=== PATIENT | female | born 1980 | race Caucasian/White ===

== ENCOUNTER 2018-03-05 00:54 | Outpatient (CLI) | payer MEDICAID, SELFPAY ==
[2018-03-05] MEDS: Gadoterate meglumine 20 ML VIAL IVP (15:00)
--- NOTE | 2018-03-05 15:15 | DI.MRI_ITS ---
SYMPTOM/DIAGNOSIS: LOW BACK PAIN, M54.5, LUMBAR RADICULOPATHY, M54.16, RT LEG PAIN, M79.604 LUMBAR SPINE MRI: Pre and post contrast examination was performed. Comparison is made with 07/21/17. The conus medullaris has a normal appearance and location. At L 5-S 1, there is a post laminectomy defect at L 5. There is degenerative disc desiccation. Degenerative changes of the facets are seen. There is a disc bulge eccentric to the right. Mild narrowing of the right neural foramen is present. No significant left neural foraminal stenosis is seen. No significant central spinal canal stenosis is present. There may be mild impression upon the right S 1 nerve root due to the disc bulge. At L 4-5, there does appear to be a laminectomy defect at L 4. There is a diffuse disc bulge. No focal disc herniation or central spinal canal stenosis is seen. Degenerative changes of the facets are seen. No significant neural foraminal stenosis is present. The remaining disc levels show no focal disc herniation, central spinal canal or neural foraminal stenosis. No findings to suggest an occult fracture are appreciated. Following contrast administration, no significant abnormal enhancement is appreciated. IMPRESSION: Diffuse disc bulge at L 5-S 1 eccentric to the right which does appear compress upon the right S 1 nerve root. Post surgical changes at L 4 and L 5. Degenerative disc disease at L 4-5 and L 5-S 1.
== END 2018-03-05 01:14 ==
PROVIDERS: PCP Family Medicine; Visit Provider Neurological Surgery
DX: M54.5 Low back pain (principal); M54.16 Radiculopathy, lumbar region; M79.604 Pain in right leg; M51.27 Other intervertebral disc displacement, lumbosacral region; M51.37 Other intervertebral disc degeneration, lumbosacral region
CPT/HCPCS: 72158

== ENCOUNTER 2018-03-22 10:27 | Outpatient (CLI) | payer MEDICAID, SELFPAY ==
--- NOTE | 2018-03-22 11:30 | DI.RAD_ITS ---
SYMPTOM/DIAGNOSIS: LT KNEE PAIN STANDING VIEWS OF LOWER EXTREMITIES: Standing AP views were performed from above the iliac crest through the ankles. There are degenerative changes of the left knee, greater in the lateral femoral tibial joint space. There is valgus angulation at the left knee. The hip joint spaces are well maintained. The left femoral head projects 6-7 mm. superior to the right. The ankle joint spaces are well maintained. IMPRESSION: Degenerative changes of the left knee with valgus angulation. Mild leg length discrepancy.
== END 2018-03-22 10:47 ==
PROVIDERS: PCP Family Medicine; Visit Provider Physician Assistant
DX: M25.562 Pain in left knee (principal); M17.12 Unilateral primary osteoarthritis, left knee; M21.062 Valgus deformity, not elsewhere classified, left knee; M21.70 Unequal limb length (acquired), unspecified site
CPT/HCPCS: 77073

== ENCOUNTER 2018-04-09 08:30 | Outpatient (CLI) | payer MEDICAID, SELFPAY ==
--- NOTE | 2018-04-09 08:23 | DI.RAD_ITS ---
SYMPTOM/DIAGNOSIS: SHOULDER AND KNEE PAIN, S/P FALL LEFT SHOULDER: Three views were obtained. There may be slight widening of the acromioclavicular joint but the distal end of the clavicle is not elevated, the findings are indeterminate for an acromioclavicular separation. No evidence of glenohumeral dislocation or fracture. LEFT KNEE: Four views were obtained. There are degenerative changes of the joints of the knee, most prominent involving the lateral tibiofemoral joint. There is no evidence of acute fracture.
== END 2018-04-09 08:50 ==
PROVIDERS: PCP Family Medicine; Visit Provider Physician Assistant
DX: M25.512 Pain in left shoulder (principal); M25.562 Pain in left knee; M17.12 Unilateral primary osteoarthritis, left knee
CPT/HCPCS: 73562; 73030

== ENCOUNTER 2018-05-14 11:21 | Outpatient (CLI) | payer MEDICAID, SELFPAY | END 2018-05-14 11:41 | PROVIDERS: PCP Family Medicine; Visit Provider Family Medicine | DX: R30.0 Dysuria (principal) | CPT/HCPCS: 87086 ==

== ENCOUNTER 2018-05-21 02:36 | Outpatient (CLI) | payer MEDICAID, SELFPAY ==
--- NOTE | 2018-05-21 10:23 | DI.US_ITS ---
SYMPTOMS/DIAGNOSIS: UTI, HX OF NEPHROLITHIASIS, N39.0 RENAL ULTRASOUND: The kidneys are normal in size and shape. There is no hydronephrosis. There appears to be a stone in the renal pelvis on the left, nonobstructing. No ureteral jet is identified on the left. A ureteral jet is identified on the right in the urinary bladder. The bladder is incompletely filled. No right renal mass, hydronephrosis or nephrolithiasis. CONCLUSION: Findings suggesting nephrolithiasis in left renal pelvis, nonobstructing.
== END 2018-05-21 02:56 ==
PROVIDERS: PCP Family Medicine; Visit Provider Family Medicine
DX: N39.0 Urinary tract infection, site not specified (principal); N20.0 Calculus of kidney
CPT/HCPCS: 76770

== ENCOUNTER 2018-05-25 12:49 | Outpatient (REF) | payer MEDICAID, SELFPAY ==
[2018-05-25 13:15] LABS: Bilirubin Negative (Negative); Blood Large (Negative); Clarity Cloudy; Glucose Negative (Negative); Ketones Negative (Negative); Leukocyte Esterase Moderate (Negative); Nitrite Negative (Negative); Urobilinogen 0.2 EU/dL (Up TO 0.2)
[2018-05-25 13:29] LABS: Bacteria Few HPF (Negative); Casts Negative LPF (Negative); Crystals Negative HPF (Negative); Epithelial Cells Negative HPF (Negative); Mucus Negative (Negative); Other Cells Few Renal (Negative); RBC >50 (0-2); WBC >50 HPF (0-5)
[2018-05-25 13:30] LABS: C & S Indicated? Yes
== END 2018-05-25 13:09 ==
LOC: LBN 12:49
PROVIDERS: PCP Family Medicine; Visit Provider Family Medicine
DX: R10.9 Unspecified abdominal pain (principal)
CPT/HCPCS: 81003; 81015; 87086

== ENCOUNTER 2018-05-27 13:35 | Outpatient (REF) | payer MEDICAID, SELFPAY | END 2018-05-27 13:55 | LOC: LBN 13:35 | PROVIDERS: PCP Family Medicine; Visit Provider Family Medicine | DX: N39.0 Urinary tract infection, site not specified (principal) | CPT/HCPCS: 87086 ==

== ENCOUNTER 2018-06-02 00:38 | Outpatient (CLI) | payer MEDICAID, SELFPAY ==
--- NOTE | 2018-06-02 08:51 | DI.RAD_ITS ---
SYMPTOM/DIAGNOSIS: ABD PAIN, DYSPHAGIA, R13.10,R10.9,R10.10 KUB: The bowel gas pattern is nonspecific. An ovoid calcification projected over the hilus of the left kidney would be consistent with the findings on a recent ultrasound of a non obstructing stone in the left renal pelvis. A small calcification is identified in the left hemipelvis and could conceivably represent a distal ureteral calculus. A vascular clip is also noted in the left hemipelvis. There is a right faint pelvic calcification which likely represents a calcified phlebolith. The patient is status post cholecystectomy. SUMMARY: Left nephrolithiasis is demonstrated. I could not exclude the possibility of a distal left ureteral calculus and if clinically warranted, then further evaluation with a repeat ultrasound or CT could be considered. SOFT TISSUE LATERAL NECK: The patient was unable to swallow barium at this time. No soft tissue or bony abnormality involving the neck is demonstrated. PA AND LATERAL CHEST: The heart is normal in size. The lungs are clear. The mediastinal structures and pleura appear intact. CONCLUSION: Normal chest.
== END 2018-06-02 00:58 ==
PROVIDERS: PCP Family Medicine; Visit Provider Family Medicine
DX: R10.10 Upper abdominal pain, unspecified; R13.10 Dysphagia, unspecified; N20.0 Calculus of kidney; Z90.49 Acquired absence of other specified parts of digestive tract
CPT/HCPCS: 70360; 71046; 74018

== ENCOUNTER 2018-06-29 00:38 | Outpatient (CLI) | payer MEDICAID, SELFPAY ==
--- NOTE | 2018-06-29 09:40 | DI.CT_ITS ---
SYMPTOMS/DIAGNOSIS: GROSS HEMATURIA, LT FLANK PAIN, R31.0, R10.9, H/O URINARY CALCULI CT OF THE ABDOMEN AND PELVIS: Images were performed without IV contrast followed by imaging during the venous phase as 7 minute delay images. The noncontrast images demonstrate a stone in the left renal pelvis measuring 1 cm. This stone was seen on a annual campaign manager view for barium swallow. It was also seen on renal ultrasound of [id number]. No additional renal calculi are seen. There is no evidence of ureteral or bladder calculi. The post IV images show symmetric nephrograms. There is mild dilatation of the intrarenal collecting system on the left. The renal excretion is symmetric. No renal mass or ureteral or bladder filling defects are seen.
[2018-06-29] MEDS: Omnipaque 350 MG/ML 100 ML BTL IJ (11:26)
== END 2018-06-29 00:58 ==
PROVIDERS: PCP Family Medicine; Visit Provider Nurse Practitioner Gerontology
DX: R10.32 Left lower quadrant pain (principal); R31.0 Gross hematuria; Z87.442 Personal history of urinary calculi
CPT/HCPCS: 74178; J3490

== ENCOUNTER 2018-07-23 07:51 | Outpatient (CLI) | payer MEDICAID, SELFPAY | END 2018-07-23 08:11 | PROVIDERS: PCP Family Medicine; Visit Provider Urology | DX: Z01.818 Encounter for other preprocedural examination (principal) ==

== ENCOUNTER 2018-07-29 10:02 | Day surgery (SDC) | payer MEDICAID, SELFPAY ==
[2018-07-23 08:13] VITALS: BP 139/85; PULSE 92; RESP 18; TEMP 36.8; O2SAT 99
--- NOTE | 2018-07-29 09:53 | DI.RAD_ITS ---
SYMPTOM/DIAGNOSIS: LT RENAL PELVIS STONE OR RETROGRADE: Fluoroscopy Time: 54.5 seconds A left retrograde examination was carried out in the OR by Dr. Ibarra with placement of a double J catheter. Please see the operative report for further information.
[2018-07-29 10:25] VITALS: BP 122/74; PULSE 84; RESP 18; TEMP 36.6; O2SAT 100
[2018-07-29] MEDS: Lactated Ringers 1,000 ML 80 ML IV (11:24)
[2018-07-29] MEDS: ceFAZolin 2 GM/50 ML BAG IVPB (11:55)
[2018-07-29] MEDS: Omnipaque 300 MG/ML 50 ML BTL (12:09)
[2018-07-29] MEDS: Lidocaine 2% Jelly 6 ML SYR (12:14)
[2018-07-29 13:07] VITALS: BP 151/74; PULSE 85; RESP 21; TEMP 36.5; O2SAT 100
--- NOTE | 2018-07-29 13:11 | W.PM.DSUDISC ---
Discharge Plan Disposition Patient Disposition: HOME Condition: Stable Discharge Details Attending Provider: Roberto Ibarra Primary Care Provider: Emely Cheek Home Meds and New Rx's Prescriptions: No Action gabapentin 100 mg capsule See Patient Comments PO .COMPLEX RF: 0 lamotrigine 100 mg tablet See Patient Comments PO BID RF: 0 Compete 1 EACH tablet 1 ea PO DAILY RF: 0 lidocaine [Lidoderm] 1 EACH adhesive patch,medicated 1 ea Topical DAILY Qty: 1 RF: 4 ibuprofen 600 MG tablet 600 mg PO Q6H PRN Qty: 60 RF: 2 promethazine 12.5 mg tablet 12.5 mg PO TID PRN (Reason: migraine headache) Qty: 25 RF: 2 venlafaxine 150 mg capsule,extended release 24hr 150 mg PO DAILY Qty: 90 RF: 4 trazodone 100 mg tablet 100 mg PO HS Qty: 90 RF: 4 venlafaxine 75 mg capsule,extended release 24hr 75 mg PO DAILY Qty: 90 RF: 4 naproxen sodium [Aleve] 220 mg tablet 440 mg PO DAILY Qty: 60 RF: 4 methocarbamol 750 mg tablet 1,500 mg PO TID PRN (Reason: muscle spasm) Qty: 30 RF: 0 tramadol 50 mg tablet 50 mg PO BID PRN (Reason: pain) Qty: 25 RF: 0 omeprazole 40 mg capsule,delayed release(DR/EC) 40 mg PO DAILY Qty: 90 RF: 4 Discharge Instructions Additional Instructions: No need to strain urine Drink plenty of fluid Do not be surprised if you see blood in the urine while the stent is in place My office will contact you to arrange cystoscopy, stent removal and ureteroscopy to make sure all stones have been removed Activity:: Activity as Tolerated Shower/Bathe:: 24 hours Diet:: As Tolerated Discharge Orders Discharge Orders: Discharge Order (Routine); Ordered 07/29/18 Ordered By: Roberto Ibarra DS: Diagnosis Discharge Diagnosis (1) Kidney stones: Status: Chronic
[2018-07-29 13:12] VITALS: BP 156/75; PULSE 83; RESP 26; TEMP 36.5; O2SAT 100
[2018-07-29 13:17] VITALS: BP 144/75; PULSE 90; RESP 23; TEMP 36.5; O2SAT 99
[2018-07-29 13:30] VITALS: BP 132/70; PULSE 84; RESP 23; TEMP 36.5; O2SAT 99
[2018-07-29] MEDS: Tamsulosin 0.4 MG CAPCR PO (14:04)
[2018-07-29] MEDS: Phenazopyridine 200 MG TAB PO (14:04)
[2018-07-29 14:20] VITALS: BP 134/79; PULSE 76; RESP 18; TEMP 36.9; O2SAT 100
[2018-07-29] MEDS: traMADol 50 MG TAB PO (14:20)
--- NOTE | 2018-07-30 09:50 | ROE_ITS ---
DATE OF PROCEDURE: July 29, 2018 PREOPERATIVE DIAGNOSIS: Left kidney stone. POSTOPERATIVE DIAGNOSIS: Same. PROCEDURE: Cystoscopy; left retrograde pyelogram; left flexible ureteroscopy; holmium laser lithotri psy of stone; stone extraction; insert left ureteral stent. SURGEON: Roberto Ibarra M.D. ANESTHESIA: General. COMPLICATIONS: None. ESTIMATED BLOOD LOSS: Minimal. HISTORY: This is a 37-year-old woman who has a history of left-side flank pain and hematuria. She w as identified as having a 1 cm stone in the left renal pelvis. She presents for stone manipulation. OPERATIVE REPORT: The patient was brought to the Operating Room on 07/29/18. After successful induct ion of general anesthesia, she was placed in the dorsal lithotomy position. Her genitalia was preppe d and draped. A 22 Bulgarian rigid cystoscope was passed through the urethra into the bladder. The urethra and bladde r were inspected with the 30-degree lens. Both ureteral orifices were identified. No blood was seen coming from either side. The left uretera l orifice was cannulated with a 6 Bulgarian access catheter. A retrograde film was obtained by injectin g Omnipaque through the access catheter under fluoroscopic guidance. The filling defect could be seen in the renal pelvis. A Glidewire was then advanced up through the access catheter into the upper pole calyx. A dual-lumen catheter was then advanced over the wire. A second wire was positioned. We chose one of the wires as a working wire and the other wire as a safety wire. We passed a uretera l access sheath over the working wire and advanced the sheath until the tip of it was seen in the upp er ureter fluoroscopically. I then passed a flexible ureteroscope through the access sheath and maneuvered the scope into the jody al pelvis. There was a clot in the renal pelvis and I could see indications of stone wedged within the clot. I irrigated most of the clot off and was able to then treat the stone with our holmium laser. We use d a 272 micron fiber and a power setting of .8 with a rate of 8. The stone fragmented fairly nicely. It was somewhat difficult to see all of the fragments due to the clot within the renal pelvis. We we re able to grasp the main fragment using a Xero Tip stone basket. We then removed the fragment and s ent it to Pathology for chemical analysis. Because I was not sure if all stone fragments had been successfully removed, we elected to place a ur eteral stent. We chose a 4.8 Bulgarian variable-length stent and advanced it over the safety wire. The proximal end of the stent was seen curled in the renal pelvis and the distal end was seen curled in the bladder fluoroscopically. We will make plans for a staged procedure with a planned return to the Operating Room for a cystoscop y, stent removal, retrograde pyelogram and repeat ureteroscopy to ensure all stone fragments had been cleared. cc: Emely Cheek M.D.
[2018-08-03 20:10] LABS: Source: Left Kidney
== END 2018-07-29 14:55 | disposition home or self-care (01) ==
PROVIDERS: PCP Family Medicine; Visit Provider Urology
PROC: (CPT 52356; principal; 2018-07-29 11:30)
DX: N20.0 Calculus of kidney (principal)
CPT/HCPCS: 52356; 74420; 82365; J0131; J0690; J1100; J1885; J2405; J3010; Q9967

== ENCOUNTER 2018-08-12 10:58 | Day surgery (SDC) | payer MEDICAID, SELFPAY ==
[2018-08-12 11:12] VITALS: BP 122/78; PULSE 85; RESP 16; TEMP 37.3; O2SAT 98
[2018-08-12] MEDS: Lactated Ringers 1,000 ML 80 ML IV ×2 (11:42→13:41)
--- NOTE | 2018-08-12 12:26 | HPE_ITS ---
Assessment and Plan (1) Kidney stones: Current visit: Yes Status: Chronic We will remove her indwelling stent and perform ureteroscopy to ensure all of the stone fragments have been removed. History of Present Illness Chief Complaint: Left renal stone Narrative: This is a 38-year-old woman who was identified as having a large stone in her left kidney. She had undergone flexible ureteroscopy with holmium laser of the stone. We removed the majority of the stone fragments, but it was unclear to me whether any of his fragments remained at the end of the procedure. We placed a ureteral stent. She comes back in for a planned ureteroscopy. With the stone fragments that were removed and the initial surgery are showing 100% calcium oxalate monohydrate. She has had some bleeding and has passed the clots in the past week. She does not feel like she empties her bladder completely. She wonders if she has a UTI. Review of Systems Review of Systems No fevers or chills No vision change or dysphasia No diabetes or thyroid Hx asthma. No current sputum production or hemoptysis. No chest pain or palpitations No nausea, vomiting, hepatitis, ulcers, jaundice, diarrhea or constipation No seizures, strokes or peripheral neuropathy Hx thrombocytopenia No gout. Chronic back pain and arthralgia. [facility] Medical History Anemia Asthma Back pain with sciatica Chronic low back pain Chronic pain syndrome Depression Depressive disorder Dizziness Essential thrombocytopenia Fibromyalgia Generalized-onset seizures History of galactorrhea Internal derangement of left knee Intractable classical migraine Obesity Pes anserinus bursitis of left knee Primary osteoarthritis of left knee Quadriceps tendonitis Recurrent UTI Surgical History History of cystoscopy (Acute) Arthroplasty of knee (01/23/15) Cholecystectomy (~05/2008) L5 S1 surgery (~2007) Ligation of fallopian tube (~2012) Tonsillectomy and adenoidectomy (~1992) Social History Smoking/Tobacco Use Status: Never Second Hand Exposure: Yes Alcohol Intake: current Alcohol Intake frequency: holidays/special occasions only Alcohol type: beer Drug use: Never Substance use type: does not use Household members: other Details: 4 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 Pets and animals: Yes Pets and animals: cat(s), dog(s), farm animals and other What type of physical activity do you participate in: walking Duration: < 15 minutes/day Frequency: 1-2 times per week Fide/Christianity: No preference Special fide needs: No Seatbelt use: never Working smoke detector in home: Yes Carbon monox detector in home: Yes Firearms in home: Yes Firearms unloaded and locked: Yes Do you feel safe at home: Yes Do you feel safe in your relationship?: Yes Meds Home Medications Medication Instructions Recorded Confirmed Type lidocaine [Lidoderm] 1 ea TOPICAL DAILY #1 box 12/29/16 08/12/18 Rx ibuprofen 600 mg PO Q6H PRN #60 tab-cap 02/17/17 08/10/18 Rx naproxen sodium 220 mg tablet 440 mg PO DAILY #60 tab-cap 03/22/18 08/12/18 Rx promethazine 12.5 mg tablet 12.5 mg PO TID PRN #25 tab-cap 03/22/18 08/10/18 Rx trazodone 100 mg tablet 100 mg PO HS #90 tab 03/22/18 08/12/18 Rx venlafaxine ER 150 mg 150 mg PO DAILY #90 cap 03/22/18 08/12/18 Rx capsule,extended release 24 hr venlafaxine ER 75 mg 75 mg PO DAILY #90 cap 03/22/18 08/12/18 Rx capsule,extended release 24 hr methocarbamol 750 mg tablet 1,500 mg PO TID PRN #30 tab-cap 03/26/18 08/12/18 Rx tramadol 50 mg tablet 50 mg PO BID PRN #25 tab-cap 04/19/18 08/12/18 Rx gabapentin 100 mg capsule See Rx Instructions PO .COMPLEX 05/27/18 08/12/18 History cap lamotrigine 100 mg tablet See Rx Instructions PO BID tab 05/27/18 08/12/18 History omeprazole 40 mg capsule,delayed 40 mg PO DAILY #90 cap 06/18/18 08/12/18 Rx release fluticasone propionate 50 1 spray GT DAILY #16 gm 08/04/18 08/10/18 Rx mcg/actuation nasal spray,suspension levomefolate calcium 15 mg tablet 15 mg PO DAILY #30 tab 08/04/18 08/12/18 Rx fexofenadine-pseudoephedrine 1 tab PO DAILY 08/10/18 08/12/18 History [Mahogany-D 24 Hour] Allergies Allergy/AdvReac Type Severity Reaction Status Date / Time bee venom protein (honey bee) Allergy Severe Swelling/Ed Unverified 08/12/18 11:21 tram meloxicam Allergy Severe Anaphylaxis Unverified 08/12/18 11:21 oxycodone HCl [From Percocet] Allergy Severe vomiting, Unverified 08/12/18 11:21 hives adhesive AdvReac Intermediate skin Unverified 08/12/18 11:21 irritation prednisone AdvReac Intermediate edema Unverified 08/12/18 11:21 bupropion HCl AdvReac Unverified 08/12/18 11:21 [From Wellbutrin] Exam Narrative Exam Narrative: She is in no current distress. She is cooperative. She does not appear septic or toxic. Her vital signs are documented elsewhere. Her neck is thick but supple Her lungs are clear with decreased breath sounds bilaterally Cardiac exam regular rate and rhythm Her abdomen is obese but soft with no masses She is awake and alert. Results Last Vital Signs Temp 37.3 C 08/12/18 11:12 Pulse 85 08/12/18 11:12 Resp 16 08/12/18 11:12 BP 122/78 08/12/18 11:12 Pulse Ox 98 08/12/18 11:12
--- NOTE | 2018-08-12 13:29 | DI.RAD_ITS ---
SYMPTOMS/DIAGNOSIS: CALCULUS OF KIDNEY, N20.0 RETROGRADE IN THE OR: Fluoroscopy Time: 4.7 seconds/2.64 mGy C-arm fluoroscopy was utilized by Dr. Ibarra during reported retrograde study. Please see Dr. Ibarra's procedure note.
[2018-08-12] MEDS: Lidocaine 2% Jelly 11 ML SYR (14:14)
--- NOTE | 2018-08-12 14:35 | W.PM.DSUDISC ---
Discharge Plan Discharge Details Attending Provider: Roberto Ibarra Primary Care Provider: Emely Cheek Home Meds and New Rx's Prescriptions: No Action fluticasone propionate [Flonase Allergy Relief] 50 mcg/actuation spray,suspension 1 spray GT DAILY Qty: 16 RF: 3 levomefolate calcium [L-Methylfolate] 15 mg tablet 15 mg PO DAILY Qty: 30 RF: 6 gabapentin 100 mg capsule See Patient Comments PO .COMPLEX RF: 0 lamotrigine 100 mg tablet See Patient Comments PO BID RF: 0 lidocaine [Lidoderm] 1 EACH adhesive patch,medicated 1 ea Topical DAILY Qty: 1 RF: 4 ibuprofen 600 MG tablet 600 mg PO Q6H PRN Qty: 60 RF: 2 promethazine 12.5 mg tablet 12.5 mg PO TID PRN (Reason: migraine headache) Qty: 25 RF: 2 venlafaxine 150 mg capsule,extended release 24hr 150 mg PO DAILY Qty: 90 RF: 4 trazodone 100 mg tablet 100 mg PO HS Qty: 90 RF: 4 venlafaxine 75 mg capsule,extended release 24hr 75 mg PO DAILY Qty: 90 RF: 4 naproxen sodium [Aleve] 220 mg tablet 440 mg PO DAILY Qty: 60 RF: 4 methocarbamol 750 mg tablet 1,500 mg PO TID PRN (Reason: muscle spasm) Qty: 30 RF: 0 tramadol 50 mg tablet 50 mg PO BID PRN (Reason: pain) Qty: 25 RF: 0 omeprazole 40 mg capsule,delayed release(DR/EC) 40 mg PO DAILY Qty: 90 RF: 4 Mahogany-D 24 Hour 180-240 mg Tablet Extended Release 24 Hr 1 tab PO DAILY RF: 0 Discharge Instructions Stand Alone Forms: [facility] ([facility]) DS: Diagnosis Discharge Diagnosis (1) Kidney stones: Status: Chronic
[2018-08-12 14:45] VITALS: BP 108/41; PULSE 92; RESP 19; TEMP 36.6; O2SAT 96
[2018-08-12 14:50] VITALS: PULSE 81; RESP 15; TEMP 36.7; O2SAT 97
[2018-08-12 14:55] VITALS: TEMP 36.7
[2018-08-12 14:57] LABS: Bilirubin Negative (Negative); Blood Large (Negative); Clarity Cloudy (Clear); Glucose Negative (Negative); Ketones Negative (Negative); Leukocyte Esterase Moderate (Negative); Nitrite Negative (Negative); Specific Gravity 1.025 (1.005-1.025); Urobilinogen 0.2 EU/dL (Up TO 0.2)
[2018-08-12 15:07] LABS: Bacteria Few HPF (Negative); C & S Indicated? No; Epithelial Cells Moderate HPF (Negative); RBC >50 (0-2); WBC >50 HPF (0-5)
[2018-08-12 15:10] VITALS: BP 112/57; PULSE 68; RESP 12; TEMP 36.3; O2SAT 100
[2018-08-12 15:50] VITALS: BP 130/90; PULSE 75; RESP 16; TEMP 35.9; O2SAT 100
[2018-08-12] MEDS: HYDROcodone 5/Acetaminophen 325 TAB PO (15:53)
[2018-08-12] MEDS: Phenazopyridine 200 MG TAB PO (15:53)
[2018-08-12] MEDS: Tamsulosin 0.4 MG CAPCR PO (16:04)
--- NOTE | 2018-08-13 07:14 | ROE_ITS ---
REPORT OF OPERATIVE PROCEDURE DATE OF PROCEDURE August 12, 2018 PREOPERATIVE DIAGNOSIS Left kidney stones. POSTOPERATIVE DIAGNOSIS Left kidney stones. PROCEDURES Cystoscopy, remove left ureteral stent, left flexible ureteroscopy, extraction of stone fragment. SURGEON Roberto Ibarra M.D. ANESTHESIA General. COMPLICATIONS None. ESTIMATED BLOOD LOSS Minimal. HISTORY This is a 38-year-old woman who has a history of a 1-cm left renal pelvic stone. She underwent ureter oscopy with Holmium laser of the stone. We were not sure if all stone fragments had cleared. We place d a stent at the end of her initial procedure. She returns now for a staged ureteroscopy to remove any remaining stone fragments. DESCRIPTION OF PROCEDURE The patient was brought to the Operating Room on 08/12/2018. After successful induction of general ane sthesia, she was placed in the dorsal lithotomy position. Her genitalia was prepped and draped. A #22 -Telugu rigid cystoscope was passed through the urethra into the bladder. The bladder was inspected with a 30-degree lens. The left ureteral stent was seen protruding from the orifice. The stent was grasped in alligator forceps and removed to the level of the urethral meatus. A Glidewire was passed through the stent and maneuvered up the remainder of the left ureter. The sten t was then removed leaving the wire in place. A dual lumen catheter was positioned and a second wire was placed. We choose one of the wires as a wo rking wire and the other as a safety wire. A ureteral access sheath was advanced over the working wire. The safety wire was left in place. The flexible ureteroscope was then introduced through the access sheath and maneuvered up the left ur eter to the collecting system. We inspected each of the calyces and found one stone fragment in one of the mid pole calyces. This fr agment was grasped in a Zero tip stone basket and removed in its entirety. Since her previous stone h ad already undergone chemical analysis we did not send this fragment to the lab. With no additional stone fragments identified, we removed the scope and ureteral access sheath. We al so removed the safety wire. CC: Emely Cheek M.D.
== END 2018-08-12 16:25 | disposition home or self-care (01) ==
PROVIDERS: PCP Family Medicine; Visit Provider Urology
PROC: (CPT 52352; principal; 2018-08-12 13:00)
DX: N20.0 Calculus of kidney (principal)
CPT/HCPCS: 52352; 81025; NC; 74420; 81003; 81015; J1100; J1885; J2405

== ENCOUNTER 2018-09-20 00:45 | Outpatient (CLI) | payer MEDICAID, SELFPAY ==
--- NOTE | 2018-09-20 09:57 | DI.US_ITS ---
SYMPTOM/DIAGNOSIS: F/U RETROGRADE FOR KIDNEY STONES, ? HYDRONEPHROSIS RENAL ULTRASOUND: The left kidney measures 11.2 cm. in length. The right kidney measures 10.5 cm. in length. The parenchymal thickness and echogenicity appear normal. A shadowing stone is seen at the lower pole of the left kidney measuring up to 12 mm. in size. No hydronephrosis or right sided calculi are seen. The prevoid bladder volume measured 114 cc's. There is a 4 cc postvoid residual. Both ureteral jets were visualized. IMPRESSION: 12 mm. non obstructing stone at the lower pole of the left kidney.
== END 2018-09-20 01:05 ==
PROVIDERS: PCP Family Medicine; Visit Provider Urology
DX: N20.0 Calculus of kidney (principal)
CPT/HCPCS: 76770

== ENCOUNTER 2018-10-21 09:54 | Outpatient (CLI) | payer MEDICAID, SELFPAY ==
--- NOTE | 2018-10-21 08:49 | DI.RAD_ITS ---
SYMPTOM/DIAGNOSIS: LEFT KNEE PAIN, KNOWN DJD LEFT KNEE: 10/21 Two views were obtained. There is narrowing of the lateral tibial femoral cartilaginous joint space with mild subchondral sclerosis of the medial tibial plateau. Mild flattening of the femoral condyles noted bilaterally. Mild marginal osteophyte formation noted at the lateral tibiofemoral joint and to a lesser degree the patellofemoral joint. CONCLUSION: DJD predominantly involving lateral tibial femoral joint
== END 2018-10-21 10:14 ==
PROVIDERS: PCP Family Medicine; Visit Provider Physician Assistant
DX: M25.562 Pain in left knee (principal); M17.12 Unilateral primary osteoarthritis, left knee
CPT/HCPCS: 73560

== ENCOUNTER 2018-10-29 01:17 | Outpatient (CLI) | payer MEDICAID, SELFPAY ==
--- NOTE | 2018-10-29 11:50 | DI.MRI_ITS ---
SYMPTOMS/DIAGNOSIS: CHRONIC LEFT KNEE DJD, NEW INJURY/FALL IN AUGUST WITH INCREASING ANTERIOR KNEE PAIN, M17.12, S/P PARTIAL MENISCECTOMY MRI OF THE LEFT KNEE: Comparison is made with plain films dated October, and MRI dated January,. Proton density and fat-suppressed T2 sagittal, T1 and fat- suppressed T2 coronal and fat-suppressed T2 axial sequences were performed. The exam is limited by patient body habitus. The knee coil was unable to be used. There is decreased image resolution. Some images also show technical artifact. There is a moderate-sized joint effusion. There is some fluid seen in the anterior soft tissues anterior to the patellar tendon. The quadriceps and patellar tendons appear intact. The marrow signal is normal. There is no evidence of a fracture. The cruciate and collateral ligaments appear grossly intact. The patient has had a previous surgery of the lateral meniscus. The anterior horn is quite diminutive. The menisci are not well evaluated due to limitations of the exam. There is spurring from the lateral femoral condyle and lateral tibial plateau. IMPRESSION: Extremely limited exam. Postsurgical changes of the lateral meniscus. Degenerative changes of the lateral femorotibial joint. Joint effusion.
== END 2018-10-29 01:37 ==
PROVIDERS: PCP Family Medicine; Visit Provider Student in an Organized Health Care Education/Training Program
DX: M25.562 Pain in left knee (principal); M17.12 Unilateral primary osteoarthritis, left knee; M25.462 Effusion, left knee
CPT/HCPCS: 73721

== ENCOUNTER 2019-02-01 08:28 | Outpatient (CLI) | payer MEDICAID, SELFPAY ==
[2019-02-01 08:52] LABS: Platelet Count 327 x1000/uL (130-400)
[2019-02-01 09:56] VITALS: BP 122/70; PULSE 65; RESP 20; TEMP 37.1; O2SAT 100
--- NOTE | 2019-02-01 10:16 | PDOC.PAIN_ITS ---
Pain Clinic Procedure Note Procedure Note Procedure Note: LEFT GENICULAR NERVE BLOCK Date of Service: February 01, 2019 Patient: YENNY ALICIA Provider: Eliud Mejia MD Pre-operative diagnosis: left knee osteoarthritis Post-operative diagnosis: same as above COMMENTS: Pre-procedure VAS to the left knee is 6/10. patient was evaluated by Es Jaramillo APRN and referred for diagnostic left genicular nerve block for chronic knee pain. patient is obese and cannot tolerate PT effectively due to worsening knee pain. she is in the process of considering gastric bypass as weight reduction option. YENNY ALICIA has been referred to the [facility] for left genicular nerve block. YENNY was interviewed and the medical record reviewed. There were no medical, pharmacologic, radiographic or other structural contraindications to attempting fluoroscopically guided left genicular nerve block. Risks and potential side effects as well as potential benefit of the procedure were reviewed with YENNY , and she voiced concerns were addressed. After I believed that the patient was completely informed, the printed consent form was signed. Standard time-out procedure was performed. YENNY was placed in the supine position on the fluoroscopy table and automated blood pressure cuff and pulse oximeter applied. The skin entry points for approaching left superolateral genicular nerve, the superomedial genicular nerve and the inferomedial genicular was identified under the most advantageous fluoroscopic view and marked. Following thorough Chlorhexadine preparation of the skin and draping, 1% lidocaine infiltration of the skin entry point and subcutaneous tissues was accomplished using a 1.5 25G needle. Next, the 3.5 25G spinal needle was advanced to os at the location of the specific nerve root using fluoroscopic guidance. Next, 1 cc of 1% 0.5% Bupivocaine was injected at each site. The needles were removed without difficulty. YENNY's vital signs were stable throughout the procedure and were as recorded in the docflowsheet by the nursing staff. If given, dosages of intravenous drugs for anxiolysis and analgesia were documented in MAR. Follow up plans and appointments were discussed with the YENNY . Post procedure instruction was given as documented in nursing documentation and having met discharge criteria, YENNY was discharged from the [facility]. COMMENTS: No complications. Post-procedure VAS to the left knee is 3/10. The patient will keep track of her left knee pain over the next four hours. If YENNY has sufficient pain relief, YENNY will be a candidate for radiofrequency ablation at the same nerves. Islas WJ1, Clmeentina SJ, Greg JG, Nidia JG, Donaldson MOLINA, Park PH, Potter JW. Radiofrequency treatment relieves chronic knee osteoarthritis pain: a double-blind randomized controlled trial. Pain. 2010;152(3):481-7. doi: 10.1016/j.pain.2010.09.029. Laura S1, Kristopher ON2, Santy Y3, ?zl?bj P2, Dave U1, Abram ?m?rl? I. Which one is more effective for the clinical treatment of chronic pain in knee osteoarthritis: radiofrequency neurotomy of the genicular nerves or intra- articular injection? Int J Rheum Dis. 2016 Sep 27. I personally performed this entire procedure. Eliud Mejia MD Attending Physician
--- NOTE | 2019-02-01 10:45 | DI.RAD_ITS ---
EXAM: XR PAIN CLINIC FLUORO JOINT IN CLINICAL HISTORY: Dx: Osteoarthritis of left knee,LT GENICULAR BLOCK TECHNIQUE: Fluoroscopy was provided for the referring physician for guidance with performing injecti on procedure. COMPARISON: No exams were available for comparison FINDINGS: Please see procedure note for details. FLUORO TIME: 68.10 seconds
[2019-02-01 10:49] VITALS: BP 148/95; PULSE 83; O2SAT 100
[2019-02-01] MEDS: Bupivacaine 0.5% Pres-Free 10 ML VIAL IJ (10:57)
[2019-02-01] MEDS: Omnipaque 240 MG/ML 50 ML BTL IJ (10:58)
== END 2019-02-01 08:48 ==
PROVIDERS: PCP Family Medicine; Visit Provider Internal Medicine
DX: M17.12 Unilateral primary osteoarthritis, left knee (principal)
CPT/HCPCS: 64640; 77002; 85049; Q9967

== ENCOUNTER 2019-02-23 01:27 | Outpatient (CLI) | payer MEDICAID, SELFPAY ==
--- NOTE | 2019-02-23 15:55 | DI.US_ITS ---
EXAM: US RENAL CLINICAL HISTORY: flank pain with hx of kidney stones R10.9 ABDOMINAL PAIN TECHNIQUE: Ultrasound performed using standard protocol. COMPARISON: US renal from 09/20/2018 FINDINGS: Renal ultrasound was performed according to the usual protocol. The kidneys are not ideally visualiz ed but appear normal in size and shape. No gross hydronephrosis. No nephrolithiasis seen. Urinary bladder is unremarkable in appearance with pre and postvoid urinary bladder volume measurements 207 c c and 3 cc respectively. Ureteral jets were seen bilaterally. IMPRESSION: Technically limited study. No abnormality seen.
== END 2019-02-23 01:47 ==
PROVIDERS: PCP Family Medicine; Visit Provider Nurse Practitioner Gerontology
DX: R10.9 Unspecified abdominal pain (principal); Z87.442 Personal history of urinary calculi
CPT/HCPCS: 76770

== ENCOUNTER 2019-03-10 10:53 | Outpatient (CLI) | payer MEDICAID, SELFPAY ==
--- NOTE | 2019-03-10 10:48 | DI.RAD_ITS ---
EXAM: XR KNEE RT 3V AP,LAT,ILIANA CLINICAL HISTORY: RIGHT KNEE PAIN. TECHNIQUE: 2D digital imaging was performed. COMPARISON: XR knee LT 3V AP,lat,iliana from 10/21/2018 FINDINGS: BONES: No acute fracture is present. No bony destructive lesion is seen. JOINTS: The knee is normally aligned. No joint effusion is seen. SOFT TISSUE: Normal. IMPRESSION: Unremarkable radiographs of the right knee.
== END 2019-03-10 11:13 ==
PROVIDERS: PCP Family Medicine; Visit Provider Student in an Organized Health Care Education/Training Program
DX: M25.561 Pain in right knee (principal)
CPT/HCPCS: 73562

== ENCOUNTER 2019-06-14 11:33 | Outpatient (REF) | payer MEDICAID, SELFPAY | END 2019-06-14 11:53 | LOC: LBN 11:33 | PROVIDERS: PCP Family Medicine; Visit Provider Family Medicine | DX: N39.0 Urinary tract infection, site not specified (principal) | CPT/HCPCS: 87077; 87086; 87186 ==

== ENCOUNTER 2019-09-29 00:39 | Outpatient (CLI) | payer MEDICAID, SELFPAY ==
--- NOTE | 2019-09-29 07:15 | DI.US_ITS ---
EXAM: US RENAL CLINICAL HISTORY: monitor known left kidney stone,. TECHNIQUE: Gonzalez scale, color and spectral Doppler were used. COMPARISON: US US RENAL from 02/23/2019 FINDINGS: Renal size in cm: Right: 10.6. Left: 11.5. Echogenicity: Normal. Hydronephrosis: No. Cyst or mass: No. Nephrolithiasis: 7.4 mm echogenic shadowing focus in the lower pole of the left kidney consistent wit h a nonobstructing stone. Other findings: None. Bladder:Not adequately filled for examination. Renal color flow: Symmetric and within normal limits. IMPRESSION: 1. Left nephrolithiasis. No hydronephrosis. 2. Urinary bladder inadequately filled for examination. DATA REPOSITORY:
== END 2019-09-29 00:59 ==
PROVIDERS: PCP Family Medicine; Visit Provider Urology
DX: N20.0 Calculus of kidney (principal)
CPT/HCPCS: 76770

== ENCOUNTER 2019-10-14 03:51 | Outpatient (CLI) | payer MEDICAID, SELFPAY ==
[2019-10-14 09:10] LABS: HCT 38.3 % (36.0-46.0); HGB 12.5 g/dL (11.2-15.7); MCH 28.5 pg (27.0-33.0); MCHC 32.6 % (32.0-36.0); MCV 87.4 fL (80-95); MPV 10.6 fL (8.0-11.0); Platelet Count 305 10^3/uL (130-400); RBC 4.38 10^6/uL (3.93-5.22); RDW 12.3 % (11.7-14.6); RDW-SD 39.4 fL; WBC 7.54 10^3/uL (4.4-10.8)
[2019-10-14 10:15] LABS: Iron 60 ug/dL (50-170); Total Iron Binding Capacity 283 ug/dL (250-450); Transferrin Sat 21 % (15-50)
[2019-10-14 10:28] LABS: ALT 32 U/L (14-59); AST 14 U/L (15-37); Albumin 3.9 g/dL (3.4-5.0); Alkaline Phosphatase 129 U/L (46-116); Anion Gap 3.8 mmol/L (3-11); BUN 23 mg/dL (7-18); Bilirubin, Total 0.5 mg/dL (0.2-1.0); CO2 28.2 mmol/L (21.0-32.0); CREATININE 0.81 mg/dL (0.55-1.02); Calcium 8.9 mg/dL (8.5-10.1); Calculated LDL 149 mg/dL (<100); Chloride 106 mmol/L (98-107); Cholesterol 222 mg/dL (<200); Ferritin 56 ng/mL (8-252); Glucose 96 mg/dL (74-106); HDL Cholesterol 54 mg/dL (40-60); Potassium 4.2 mmol/L (3.5-5.1); Sodium 138 mmol/L (136-145); Total Protein 7.1 g/dL (6.4-8.2); Triglyceride 97 mg/dL (<150)
[2019-10-17 10:17] LABS: IgA 223 mg/dL (85-499)
[2019-10-17 16:07] LABS: TSH 2.48 uIU/mL (0.36-3.74)
[2019-10-17 18:12] LABS: Tissue Transglutaminase Ab IgA <1.2 U/mL
== END 2019-10-14 04:11 ==
PROVIDERS: PCP Family Medicine; Visit Provider Internal Medicine Gastroenterology
DX: R53.83 Other fatigue (principal); E83.42 Hypomagnesemia; R19.7 Diarrhea, unspecified; Z13.220 Encounter for screening for lipoid disorders
CPT/HCPCS: 36415; 80053; 80061; 82784; 85027; 82728; 83516; 83540; 83550; 83735; 84443

== ENCOUNTER 2020-10-16 01:18 | Outpatient (CLI) | payer OTHER, MEDICAID, SELFPAY ==
--- NOTE | 2020-10-16 08:00 | DI.US_ITS ---
Exam(s) US RENAL EXAM: US RENAL CLINICAL HISTORY: Monitor LT LOWER POLE STONES,N20.0. TECHNIQUE: Gonzalez scale, color and spectral Doppler were used. COMPARISON: US US RENAL from 09/29/2019 FINDINGS: Renal size in cm: Right: 11.3. Left: 12.3. Echogenicity: Normal. Hydronephrosis: No. Cyst or mass: No. Nephrolithiasis: There is a 0.6 x 0.7 cm non-obstructing stone in the lower pole of the left kidney. Other findings: None. Bladder:Normal. Ureteral jets: Right: Not visualized on this examination. Left: Not visualized on this examination. Prevoid vol:116 cc Postvoid vol:0 cc Renal color flow: Symmetric and within normal limits. IMPRESSION: Stable left nephrolithiasis. DATA REPOSITORY:
== END 2020-10-16 01:38 ==
PROVIDERS: Visit Provider Urology
DX: N20.0 Calculus of kidney (principal)
CPT/HCPCS: 76770

== ENCOUNTER 2021-07-29 15:28 | Outpatient (CLI) | payer OTHER, MEDICAID, SELFPAY ==
--- NOTE | 2021-07-29 15:15 | DI.RAD_ITS ---
Exam(s) XR KNEE LT 4V AP,LAT,ILIANA,PAT EXAM: XR KNEE LT 4V AP,LAT,ILIANA,PAT CLINICAL HISTORY: follow up. TECHNIQUE: 2D digital imaging was performed. Four views. COMPARISON: CR XR KNEE RT 3V AP,LAT,ILIANA from 03/10/2019 FINDINGS: BONES: No acute fracture is present. No bony destructive lesion is seen. Prominent spurring at the l ateral aspect of the patella. Prominent spurring of the lateral femoral condyle and lateral tibial p lateau. There is mild spurring of the medial femoral condyle and medial tibial plateau. JOINTS: Moderate to severe narrowing lateral femoral tibial joint. No joint effusion is seen. SOFT TISSUE: Normal. IMPRESSION: Moderate to severe degenerative changes of the lateral femoral tibial joint. Prominent spurring later al aspect of the patella. DATA REPOSITORY: RADIATION DOSE DELIVERED:
== END 2021-07-29 15:29 | disposition home or self-care (01) ==
LOC: DIORS 15:29
PROVIDERS: PCP Family Medicine; Referring Provider Family Medicine; Visit Provider Physician Assistant Surgical
DX: M25.562 Pain in left knee (principal); M17.12 Unilateral primary osteoarthritis, left knee
CPT/HCPCS: 73564

== ENCOUNTER 2021-08-14 15:26 | Outpatient (REF) | payer OTHER, MEDICAID, SELFPAY | END 2021-08-14 15:27 | disposition home or self-care (01) | LOC: LBN 15:26 | PROVIDERS: PCP Family Medicine; Visit Provider Nurse Practitioner Gerontology | DX: N39.0 Urinary tract infection, site not specified (principal); N28.0 Ischemia and infarction of kidney; N89.8 Other specified noninflammatory disorders of vagina | CPT/HCPCS: 87077; 87086; 87186 ==

== ENCOUNTER 2021-08-20 11:26 | Outpatient (REF) | payer OTHER, MEDICAID, SELFPAY ==
[2021-08-20 13:06] LABS: Source Nasal/Nares
[2021-08-20 16:45] LABS: COVID-19 PCR Negative (Negative)
== END 2021-08-20 11:27 | disposition home or self-care (01) ==
LOC: LBN 11:26
PROVIDERS: PCP Family Medicine; Visit Provider Urology
DX: Z20.822 Contact with and (suspected) exposure to COVID-19 (principal); Z01.818 Encounter for other preprocedural examination
CPT/HCPCS: 87635

== ENCOUNTER 2021-08-22 06:11 | Day surgery (SDC) | payer OTHER, MEDICAID, SELFPAY ==
[2021-08-22] VITALS (8 sets, daily range): BP systolic 124–165; BP diastolic 69–97; PULSE 65–95; RESP 14–21; TEMP 36–36.7; O2SAT 97–100; BMI 51.2
[2021-08-22] MEDS: Lactated Ringers 1,000 ML 80 ML IV (06:49)
--- NOTE | 2021-08-22 07:00 | W.PM.HP.N ---
Date of service: 08/22/21 Time of Service: 07:00 Assessment and Plan Assessment and plan (1) Left ureteral stone: Status: Acute History of Present Illness History of Present Illness Chief Complaint: Ureteral stone Narrative: Love is a 41-year-old female with history of a left lower pole kidney stone.? We have been monitoring her stone size and position with yearly ultrasounds.? However, recently, 08/06/21 she had left flank pain that led her to [facility] emergency room.? CT was done to find a 7 mm obstructing stone at the left ureteropelvic junction.? There was also note of left mild hydronephrosis and concerns for infection.? Dr. Santoyo was able to place a left ureteral stent.? Patient was hospitalized for what appears to be 2 days.? She comes in today to discuss surgical intervention for stone manipulation for her left UPJ stone. She has completed multiple courses of antibiotic. She had no stent discomfort until the last 2 or 3 days. She has no fever or chills. Review of System Review of Systems Narrative: No fevers or chills No vision change or dysphasia No diabetes or thyroid dysfunction No shortness of breath, cough or hemoptysis No chest pain or palpitations Hx GERD. No hepatitis, ulcers, jaundice No seizures, strokes or peripheral neuropathy Hx thrombocytopenia. No bleeding disorders or anemia Chronic pain with fibromyalgia. Chronic back pain and arthralgia. No gout PFSH All Active Problems (Updated 08/22/21 @ 07:05 by Roberto Ibarra MD) Left ureteral stone (Acute) Right lumbar radiculitis (Chronic) Anemia (Acute 08/08/13) iron deficient Asthma (Acute) Back pain with sciatica (Acute 03/24/17) Chondromalacia, right hip (Acute 10/14/17) Chronic pain syndrome (Acute 11/12/16) 11/12/16-CONTROLLED SUBSTANCE AGREEMENT Depressive disorder (Acute 08/08/13) [facility].Brian Oconnor Essential thrombocytopenia (Acute 06/15/12) Fatigue (Acute 01/14/16) Femoroacetabular impingement of right hip (Acute 08/26/17) Fibromyalgia (Acute 01/01/14) probable/[facility] [place]. RHeumatology : exci/Lyrica Generalized-onset seizures (Acute 07/19/12) : EEG :negative/Topamax started for migraines History of back surgery (Acute) 2007; : [facility]chronic post-laminectomy syndrome/repeat mri pending [facility]/no sx indicated/chronic inflamm.right S1 nerve root: PT 12-04-2016 Pain clinic [facility]: lumbar/sacral transforaminal injection at the right S1 Hx of galactorrhea (Acute) [facility]. [place].: negative/mammo.neg. Intractable classical migraine (Acute 02/25/15) : Topamax and Imitrex started/ Pes anserinus bursitis of left knee (Acute 02/01/15) Primary osteoarthritis of left knee (Acute 08/04/16) DEPO MEDROL 07/29/21 Quadriceps tendonitis (Acute 02/01/15) Recurrent UTI (Acute 03/27/15) [facility] [place] 04-03: U/S pending/ consider prophylaxis Vaginal discharge, non-hemorrhagic (Acute 01/14/16) Trochanteric bursitis, right hip (Chronic) Injected: 10/21/2018; 04/09/2018 Patellar tendinitis of left knee (Acute) Ulnar neuropathy of left upper extremity (Acute) Tendonitis of left rotator cuff (Acute) Binge eating disorder (Acute) Left flank pain (Acute) History of kidney stones (Chronic) Status post tonsillectomy and adenoidectomy (Acute) Status post cholecystectomy (Acute) History of bilateral ligation of fallopian tubes (Acute) Back pain with radiation (Acute 08/08/13) Kidney stones (Chronic) Patellar tendinitis, right knee (Acute) Osteoarthritis of right knee (Acute) Bipolar depression (Acute) Tremor observed on examination (Acute) Morbid obesity (Acute) Osteoarthritis of left knee (Acute) depo medrol 07/29/21 Medical History (Updated 08/22/21 @ 07:05 by Roberto Ibarra MD) Anemia Anxiety Asthma Back pain with sciatica Bipolar II disorder Chronic low back pain Chronic pain syndrome Class 3 severe obesity due to excess calories with serious comorbidity and body mass index (BMI) of 50.0 to 59.9 in adult Depression Depressive disorder Dizziness Essential thrombocytopenia Facial pressure Fibromyalgia Generalized-onset seizures Pt. states she doesn't have seizures anymore, stated in 2019 she did a 10 day stay for EEG monitoring and found shedoesn't have seizures anymore, and stated previous seizures were a result of previous head trauma. Last noted seizures was 2011 GERD (gastroesophageal reflux disease) History of galactorrhea Internal derangement of left knee Intractable classical migraine Leukocytosis Low back pain Migraine without aura Myoclonic jerking Nasal congestion Obesity Obstructive sleep apnea Pes anserinus bursitis of left knee Pharyngoesophageal dysphagia Primary osteoarthritis of left knee Quadriceps tendonitis Rectocele Recurrent UTI Subacute vaginitis Surgical History Arthroplasty of knee (01/23/15) arthroscopy l knee 2015 Cholecystectomy (~05/2008) H/O of hemilaminectomy with foraminotomy and discectomy 2018 History of cystoscopy L retrograde pyelogram ureteroscopy w/homium laser L5 S1 surgery (~2007) L5-S1 surgery for HNP no right achilles reflex l4 surgery Ligation of fallopian tube (~2012) Tonsillectomy and adenoidectomy (~1992) Family History Mother Essential hypertension Agoraphobia Depression Hyperlipidemia Mental disorder COPD (chronic obstructive pulmonary disease) Pena esophagus Asthma Father Diabetes Essential hypertension Quadriplegia S/P MVA AGE 23 (1985) Sister Depression Substance abuse Brother No problems noted. Brother No problems noted. Son Asthma Family History Substance abuse SEVERAL MATERNAL RELATIVES Alcohol abuse Depression Suicide Suicide attempt Maternal Grandfather Diabetes Heart disease Lung cancer Esophageal cancer Paternal Grandfather , Suicide Depression Maternal Grandmother Breast cancer Paternal Grandmother Diabetes Essential hypertension Maternal Aunt Breast cancer Social History Smoking/Tobacco Use Status: Never Second Hand Exposure: Yes Smoking risk assessment performed?: Yes Alcohol Intake: current Alcohol Intake frequency: a few times a month Alcohol type: beer Drug use: Current Sobriety Substance use type: does not use, marijuana, crack/cocaine, hallucinogens, opiates and painkillers Details: clean since 2007 Caregiver/Support person: No Household members: spouse and children Housing: house Communication Needs: Corrective Lenses Do you need help understanding health information?: Rarely current occupation: [employer] Pets and animals: Yes Pets and animals: cat(s), dog(s), farm animals and other Sexually active: Yes Do you think of yourself as: bisexual Current gender identity: female What is your relationship status?: How often do you talk on the phone with friends or family?: twice per week How often do you get together with friends or relatives?: decline to answer How often do you attend uatsdin or baptist services?: decline to answer Do you belong to any clubs or organized social groups?: no Panel score (0-1 are the most socially isolated patients): 1 What type of physical activity do you participate in: walking Duration: < 15 minutes/day Frequency: 1-2 times per week Fide/Restorationist: No preference Special fide needs: No Seatbelt use: never Helmet use: No Drive intox or ride w/intox 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 Working smoke detector in home: Yes Carbon monox detector in home: Yes Firearms in home: Yes Firearms unloaded and locked: Yes Do you feel safe at home: Yes Do you feel safe in your relationship?: Yes Meds Allergies and Home Medications Allergies Allergy/AdvReac Type Severity Reaction Status Date / Time bee venom protein (honey bee) Allergy Severe Swelling/Ed Verified 08/21/21 09:19 tarm meloxicam Allergy Severe Anaphylaxis Verified 08/21/21 12:11 oxycodone HCl [From Percocet] Allergy Severe vomiting, Verified 08/21/21 12:11 hives adhesive AdvReac Intermediate skin Verified 08/21/21 09:19 irritation prednisone AdvReac Intermediate edema Verified 08/21/21 09:19 bupropion HCl AdvReac Pt states Verified 08/21/21 12:11 [From Wellbutrin] it lowers my seizure threshold Steroids AdvReac Intermediate Pt states Uncoded 08/21/21 12:11 she gets very violently angry Home Medications Medication Instructions Recorded Confirmed Type lidocaine 5 % topical patch 1 ea topical DAILY ##1 12/29/16 08/21/21 Rx (Lidoderm) promethazine 12.5 mg tablet 12.5 mg PO TID PRN migraine 03/22/18 08/21/21 Rx headache #25 tab-caps fluticasone propionate 50 1 spray intranasal DAILY #16 grams 08/04/18 08/21/21 Rx mcg/actuation nasal spray,suspension (Flonase Allergy Relief) fexofenadine 180 mg tablet 180 mg PO DAILY PRN 11/15/18 08/22/21 History triamcinolone acetonide 0.1 % 1 applic topical BID PRN 03/31/19 08/21/21 History topical cream methocarbamol 750 mg tablet 750 - 1,500 mg PO TID PRN muscle 05/06/19 08/21/21 Rx spasm #30 tab-caps tramadol 50 mg tablet 50 mg PO BID PRN pain #25 tab-caps 05/06/19 08/22/21 Rx trazodone 100 mg tablet 100 mg PO HS #90 tabs 05/06/19 08/22/21 Rx omeprazole 40 mg capsule,delayed 40 mg PO BID 03/25/21 08/22/21 History release gabapentin 100 mg capsule 300 mg PO BID 07/29/21 08/22/21 History lamotrigine 200 mg tablet 300 mg PO DAILY 07/29/21 08/22/21 History (Lamictal) hydroxyzine pamoate 25 mg capsule 25 mg PO BID PRN 08/06/21 08/22/21 History multivitamin 1 tab PO DAILY 08/06/21 08/22/21 History naproxen sodium 220 mg tablet 440 mg PO DAILY PRN 08/06/21 08/22/21 History oxybutynin chloride 5 mg tablet 5 mg PO BID-TID PRN bladder spasms 08/09/21 08/22/21 Rx #20 tabs ciprofloxacin HCl 250 mg tablet 250 mg PO BID #14 tabs 08/16/21 08/22/21 Rx famotidine 20 mg tablet 20 mg PO BID 08/22/21 08/22/21 History Exam Const General: cooperative and no acute distress Neck Neck: supple Resp Effort & Inspection: normal respiratory effort Auscultation: clear to auscultation bilaterally Cardio Rate: regular rate Rhythm: regular rhythm GI Inspection: obesity Neuro General: patient alert, patient awake and patient oriented x3 Results Last Vital Signs Temp 36.6 C 08/22/21 06:28 Pulse 94 H 08/22/21 06:28 Resp 16 08/22/21 06:28 BP 143/97 H 08/22/21 06:28 Pulse Ox 97 08/22/21 06:28
--- NOTE | 2021-08-22 07:02 | ANES.PREOP_ITS ---
General Info Date of Service Date Performed: 08/22/21 Height: 5 ft 7 in Weight: 148.325 kg Body Mass Index (BMI): 51.2 Surgical Procedure: Operation Date: 08/22/21 07:40 Proposed Procedure Side Surgeon p Cystoscopy/Laser/Retrograde/Ureteroscopy/left Left Roberto Ibarra MD Meds Allergies and Home Medications Allergies Allergy/AdvReac Type Severity Reaction Status Date / Time bee venom protein (honey bee) Allergy Severe Swelling/Ed Verified 08/21/21 09:19 tram meloxicam Allergy Severe Anaphylaxis Verified 08/21/21 12:11 oxycodone HCl [From Percocet] Allergy Severe vomiting, Verified 08/21/21 12:11 hives adhesive AdvReac Intermediate skin Verified 08/21/21 09:19 irritation prednisone AdvReac Intermediate edema Verified 08/21/21 09:19 bupropion HCl AdvReac Pt states Verified 08/21/21 12:11 [From Wellbutrin] it lowers my seizure threshold Steroids AdvReac Intermediate Pt states Uncoded 08/21/21 12:11 she gets very violently angry Home Medication Medication Instructions Recorded lidocaine 5 % topical patch 1 ea topical DAILY ##1 12/29/16 (Lidoderm) promethazine 12.5 mg tablet 12.5 mg PO TID PRN migraine 03/22/18 headache #25 tab-caps fluticasone propionate 50 1 spray intranasal DAILY #16 grams 08/04/18 mcg/actuation nasal spray,suspension (Flonase Allergy Relief) fexofenadine 180 mg tablet 180 mg PO DAILY PRN 11/15/18 triamcinolone acetonide 0.1 % 1 applic topical BID PRN 03/31/19 topical cream methocarbamol 750 mg tablet 750 - 1,500 mg PO TID PRN muscle 05/06/19 spasm #30 tab-caps tramadol 50 mg tablet 50 mg PO BID PRN pain #25 tab-caps 05/06/19 trazodone 100 mg tablet 100 mg PO HS #90 tabs 05/06/19 omeprazole 40 mg capsule,delayed 40 mg PO BID 03/25/21 release gabapentin 100 mg capsule 300 mg PO BID 07/29/21 lamotrigine 200 mg tablet 300 mg PO DAILY 07/29/21 (Lamictal) hydroxyzine pamoate 25 mg capsule 25 mg PO BID PRN 08/06/21 multivitamin 1 tab PO DAILY 08/06/21 naproxen sodium 220 mg tablet 440 mg PO DAILY PRN 08/06/21 oxybutynin chloride 5 mg tablet 5 mg PO BID-TID PRN bladder spasms 08/09/21 #20 tabs ciprofloxacin HCl 250 mg tablet 250 mg PO BID #14 tabs 08/16/21 famotidine 20 mg tablet 20 mg PO BID 08/22/21 Current Visit Medications: Current Medications Generic Name Dose Route Start Last Admin Trade Name Grace PRN Reason Stop Dose Admin Ringer's Solution 1,000 mls @ 80 mls/hr 08/22/21 06:00 08/22/21 06:49 IV 09/20/21 23:59 80 mls/hr INFUSION SOURAV Administration Cefazolin Sodium/Dextrose 2 gm in 50 mls @ 100 mls/hr 08/22/21 06:00 Ancef Duplex IVPB 08/22/21 16:00 PREOP SOURAV IV Miscellaneous Supplies 1 each 08/22/21 06:00 Iv Access IV 09/20/21 23:59 DIRECTED SOURAV Sodium Chloride 0 ml 08/22/21 06:00 Normal Saline Flush 10 Ml Syr IV 09/20/21 23:59 PRN PRN Sodium Chloride 0 ml 08/22/21 06:00 Normal Saline 10 Ml Vial IJ 09/20/21 23:59 DIRECTED PRN Sterile Water 0 ml 08/22/21 06:00 Water,Injection,Sterile 10 Ml Vial IJ 09/20/21 23:59 DIRECTED PRN PFSH Active Problems Active Problems: Problem Status Onset Code Right lumbar radiculitis M54.16 Acute meniscal tear of left knee 12/25/14 S83.207A Anemia 08/08/13 D64.9 Asthma J45.909 Back pain with sciatica 03/24/17 M54.30, M54.9 Chondromalacia, right hip 10/14/17 M94.251 Chronic pain syndrome 11/12/16 G89.4 Depressive disorder 08/08/13 F32.9 Essential thrombocytopenia 06/15/12 D69.3 Fatigue 01/14/16 R53.83 Femoroacetabular impingement of right hip 08/26/17 M25.851 Fibromyalgia 01/01/14 M79.7 Generalized-onset seizures 07/19/12 R56.9 History of back surgery Z98.890 Hx of galactorrhea Z87.59 Intractable classical migraine 02/25/15 G43.119 Pes anserinus bursitis of left knee 02/01/15 M70.52 Primary osteoarthritis of left knee 08/04/16 M17.12 Quadriceps tendonitis 02/01/15 M76.899 Recurrent UTI 03/27/15 N39.0 Vaginal discharge, non-hemorrhagic 01/14/16 N89.8 Trochanteric bursitis, right hip M70.61 Patellar tendinitis of left knee M76.52 Ulnar neuropathy of left upper extremity G56.22 Tendonitis of left rotator cuff M75.82 Binge eating disorder F50.81 Left flank pain R10.9 History of kidney stones Z87.442 Status post tonsillectomy and adenoidectomy Z90.89 Status post cholecystectomy Z90.49 History of bilateral ligation of fallopian tubes Z98.51 Back pain with radiation 08/08/13 M54.9 Kidney stones N20.0 Patellar tendinitis, right knee M76.51 Osteoarthritis of right knee M17.11 Bipolar depression F31.9 Tremor observed on examination R25.1 Morbid obesity E66.01 Osteoarthritis of left knee M17.12 Medical History Medical History (Updated 08/22/21 @ 07:05 by Roberto Ibarra MD) Anemia Anxiety Asthma Back pain with sciatica Bipolar II disorder Chronic low back pain Chronic pain syndrome Class 3 severe obesity due to excess calories with serious comorbidity and body mass index (BMI) of 50.0 to 59.9 in adult Depression Depressive disorder Dizziness Essential thrombocytopenia Facial pressure Fibromyalgia Generalized-onset seizures Pt. states she doesn't have seizures anymore, stated in 2019 she did a 10 day stay for EEG monitoring and found shedoesn't have seizures anymore, and stated previous seizures were a result of previous head trauma. Last noted seizures was 2011 GERD (gastroesophageal reflux disease) History of galactorrhea Internal derangement of left knee Intractable classical migraine Leukocytosis Low back pain Migraine without aura Myoclonic jerking Nasal congestion Obesity Obstructive sleep apnea Pes anserinus bursitis of left knee Pharyngoesophageal dysphagia Primary osteoarthritis of left knee Quadriceps tendonitis Rectocele Recurrent UTI Subacute vaginitis Surgical History Surgical History Arthroplasty of knee (01/23/15) arthroscopy l knee 2015 Cholecystectomy (~05/2008) H/O of hemilaminectomy with foraminotomy and discectomy 2018 History of cystoscopy L retrograde pyelogram ureteroscopy w/homium laser L5 S1 surgery (~2007) L5-S1 surgery for HNP no right achilles reflex l4 surgery Ligation of fallopian tube (~2012) Tonsillectomy and adenoidectomy (~1992) Tobacco Smoking/Tobacco Use Status: Never Passive smoking exposure: Yes Second hand exposure: Yes Alcohol Alcohol Intake: current Alcohol intake frequency: a few times a month Alcohol t ype: beer Substance Use Substance use: Current Sobriety Substance use type: does not use, marijuana, crack/cocaine, hallucinogens, opiates and painkillers Details: clean since 2007 Vital Signs and Lab Results Vital Signs Most Recent Vital Signs in EMR: Most Recent Vital Signs Temp Pulse Resp BP Pulse Ox 36.6 C 94 H 16 143/97 H 97 08/22/21 06:28 08/22/21 06:28 08/22/21 06:28 08/22/21 06:28 08/22/21 06:28 Lab Results Blood Type / Crossmatch: No Data to Display Complete Blood Count: No Data to Display Complete Metabolic Panel: No Data to Display Liver Function Panel: No Data to Display Coagulation Panel: No Data to Display Cardiac Panel: No Data to Display Arterial Blood Gas: No Data to Display Venous Blood Gas: No Data to Display Pancreas Panel: No Data to Display Thyroid Panel: No Data to Display Infectious Disease: Coronavirus (COVID-19)(PCR) Negative (Negative) 08/20/21 10:40 Coronavirus 2019 Source Nasal/Nares 08/20/21 10:40 Blood Cultures: No Data to Display Toxicology Panel: No Data to Display Panel: No Data to Display Anesthesia Assessment and Plan Anesthesia History Personal History: No History of Anesthesia Complications Family History: No Family History of Anesthesia Complications Exercise Tolerance Exercise Tolerance: Metabolic Equivalents>4 Pertinent Negatives Pertinent Negatives: No Major Cardiovascular Symptoms or Complaints and No Major Pulmonary Symptoms or Complaints Cardiac & Pulmonary Exam Cardiac Exam: Normal S1/S2 Heart Sounds Pulmonary Exam: Clear Bilateral Breath Sounds Implantable Cardiac Device Does patient have a Pacemaker or an ICD?: No Airway Exam Known Difficult Airway: No Mallampati Class: 2 Mouth Opening: Normal (> 3cm) Thyromental Distance: Greater than 3 cm Neck Range of Motion: Full ROM Neck Circumference: Thick Teeth Condition: Normal Dentition ASA Classification ASA Score: ASA 3 Emergency Case?: No NPO Status NPO Status: NPO Clears >2 hours, Solids >8 hours Status Status: Negative HCG Anesthesia Plan Resuscitation Status: Full Code Anesthesia Technique: General Anesthesia Airway Planned: Endotracheal Tube Monitors Used: Standard Monitors
[2021-08-22] MEDS: ceFAZolin 2 GM/50 ML BAG IVPB (07:34)
[2021-08-22] MEDS: Lidocaine 2% Jelly 6 ML SYR (07:54)
[2021-08-22] MEDS: Omnipaque 300 MG/ML 50 ML BTL (07:56)
--- NOTE | 2021-08-22 08:29 | W.PM.DSUDISC ---
Discharge Plan Disposition Patient Disposition: HOME Condition: Good Discharge Details Reason For Visit: ureteroscopy Attending Provider: Roberto Ibarra Primary Care Provider: Heide Brooks Home Meds and New Rx's Prescriptions: No Action fluticasone propionate [Flonase Allergy Relief] 50 mcg/actuation spray,suspension 1 spray GT DAILY Qty: 16 3RF Rx Instructions: administer into each nostril fexofenadine 180 mg tablet 180 mg PO DAILY PRN triamcinolone acetonide 0.1 % cream 1 applic TP BID PRN Label Comments: Pt stated on 08/22/21 that she has not used in years. Rx Instructions: local application twice a day on right shoulder until rash is gone omeprazole 40 mg capsule,delayed release(DR/EC) 40 mg PO BID lamotrigine [Lamictal] 200 mg tablet 300 mg PO DAILY gabapentin 100 mg capsule 300 mg PO BID lidocaine [Lidoderm] 1 EACH adhesive patch,medicated 1 ea Topical DAILY Qty: 1 4RF promethazine 12.5 mg tablet 12.5 mg PO TID PRN (Reason: migraine headache) Qty: 25 2RF methocarbamol 750 mg tablet 750 - 1,500 mg PO TID PRN (Reason: muscle spasm) Qty: 30 0RF Rx Instructions: Take 1-2 tablets by mouth three times a day as needed only for back pain tramadol 50 mg tablet 50 mg PO BID PRN (Reason: pain) Qty: 25 0RF Rx Instructions: take one tablet twice a day as needed trazodone 100 mg tablet 100 mg PO HS Qty: 90 4RF naproxen sodium 220 mg tablet 440 mg PO DAILY PRN multivitamin Tablet 1 tab PO DAILY hydroxyzine pamoate 25 mg capsule 25 mg PO BID PRN oxybutynin chloride 5 mg tablet 5 mg PO BID-TID PRN (Reason: bladder spasms) Qty: 20 0RF ciprofloxacin HCl 250 mg tablet 250 mg PO BID Qty: 14 0RF famotidine 20 mg Tablet 20 mg PO BID Discharge Instructions Additional Instructions: no need to strain urine followup @ 5 days for stent removal (tell my office stent has string attached) followup 6 to 8 weeks with renal ultrasound Activity:: Activity as Tolerated Shower/Bathe:: 24 hours Diet:: As Tolerated Discharge Orders Discharge Orders: Discharge Order (Routine); Ordered 08/22/21 Ordered By: Roberto Ibarra DS: Diagnosis Discharge Diagnosis (1) Left ureteral stone: Status: Acute
--- NOTE | 2021-08-22 08:33 | W.PM.OP ---
Date of service: 08/22/21 Time of Service: 08:33 Operative Note Operative Note DATE OF PROCEDURE: 08/22/21 PRE-OP DIAGNOSIS: Left ureteral stone POST-OP DIAGNOSIS: same PROCEDURE: cystoscopy, remove left ureteral stent, left retrograde pyelogram, left flexible ureteroscopy with holmium laser lithotripsy and stone extraction. insert left ureteral stent SURGEON: Roberto Ibarra ANESTHESIA TYPE: General LMA/ETT Refer to Anesthesia Record ESTIMATED BLOOD LOSS: 5 PATHOLOGY: other (stone for chemical analysis) COMPLICATIONS: None Patient was transported to: PACU Patient's condition: stable Implants: 4.8 citizen of [place] by 22 to 30 cm left ureteral stent Indications: A 41-year-old woman who recently presented to an outside hospital with left abdominal pain and signs of a urinary tract infection. We had been following her for a nonobstructing left lower pole kidney stone. Imaging studies obtained at the time of her acute illness showed that the lower pole stone had migrated to the ureteropelvic junction and was causing obstruction. She was treated with a ureteral stent placement along with antibiotics. Her febrile illness has resolved. She presents now for stone manipulation. Findings: left ureteral stone bumped back into left lower pole calyx Procedure Description: The patient was brought to the operating room on 08/22/2021. She was given preoperative IV antibiotics. After successful induction of general anesthesia, she was placed in the dorsal lithotomy position. Her genitalia and perineum were prepped and draped sterilely. 2% Xylocaine jelly was instilled at the urethral meatus. A 22 [place] rigid cystoscope sheath was passed through the urethra into the bladder. We utilized a 30 degree lens to inspect the bladder. A stent could be seen protruding from the left ureteral orifice. There was some mild edematous changes at the orifice related to the stent. The stent was grasped and alligator forceps and brought to the level of the urethral meatus. A Glidewire was passed through the lumen of the stent and the stent was removed leaving the wire in place. I then passed a dual-lumen catheter over the wire and advanced the tip of the catheter in the mid ureter. I did a retrograde pyelogram by injecting Omnipaque through the second lumen of the dual-lumen catheter. This allowed us to outline the proximal ureter, renal pelvis and calyces. I then passed a second wire through the dual-lumen catheter, removed the catheter and advanced a ureteral access sheath over one of the wires. The access sheath was positioned with the tip in the proximal ureter. We chose one of the 2 wires as a safety wire. I then passed the flexible ureteroscope through the lumen of the access sheath. I did not visualize the stone in the proximal ureter or renal pelvis. I inspected each of the calyces and identified the stone in one of the lower pole calyces. The stone was grasped in a 0 tip stone basket and brought back up to the renal pelvis where it was released. I then used the 272 ?m holmium laser fiber to treat the stone. We used a dusting setting with a power of 200 and a rate of 8. Once the stone was broken into 2 smaller fragments, I was then able to grasp each of the fragments in the 0 tip stone basket and removed them in their entirety's. Each of the stone fragments was sent to pathology for chemical analysis. Reinspection of the ureter and calyces showed no evidence of perforation. I removed the ureteral access sheath and passed a 4.8 [place] variable length stent over the safety wire. We positioned the stent with the proximal end curled in the upper pole calyx and the distal end curled in the bladder. The positioning of the stent was confirmed both fluoroscopically and cystoscopically. The safety string was left on the stent and brought through the patient's urethra. The end of the was tucked into the patient's vaginal cavity. She was extubated and taken to the recovery room in stable condition. She tolerated the procedure well with no complications.
--- NOTE | 2021-08-22 08:55 | DI.RAD_ITS ---
Exam(s) XR RETROGRADE IN OR EXAM: XR RETROGRADE IN OR CLINICAL HISTORY: left kidney stone. TECHNIQUE: 2D digital imaging was performed. COMPARISON: No exams were available for comparison FINDINGS: Fluoroscopy was provided during urologic left-sided procedure. See procedure report for details. Total clipped of dose 12.31mGy IMPRESSION: DATA REPOSITORY: RADIATION DOSE DELIVERED:
[2021-08-22] MEDS: Droperidol 5 MG/2 ML VIAL 0.625 MG IVP ×2 (09:05→09:18)
[2021-08-22] MEDS: fentaNYL 100 MCG/2 ML VIAL IVP (09:25)
--- NOTE | 2021-08-22 10:01 | W.ANESPOSTOP ---
Postoperative Evaluation Date, Time and Location Date Performed: 08/22/21 Time Performed: 10:01 Patient Location: Day Surgery Unit Vital Signs Most Recent Imported Vital Signs: Most Recent Vital Signs Temp Pulse Resp BP Pulse Ox 36.5 C 65 15 128/71 97 08/22/21 09:30 08/22/21 09:30 08/22/21 09:30 08/22/21 09:30 08/22/21 09:30 Pain Score Most Recent Pain Score: Most Recent Pain Score Pain Level 2 08/22/21 09:30 Assessment Mental Status: Awake (Alert & Oriented to Patient Baseline) Airway and Respiratory Function: Patent airway with normal (patient baseline) respiratory exam Cardiovascular Function: Hemodynamically Stable Hydration Status: Adequately Hydrated Nausea & Vomiting: No Nausea or Vomiting Pain: Pain is tolerable per patient Peripheral Nerve Block: Patient did not receive a nerve block
[2021-08-29 14:19] LABS: Source: Left Kidney
== END 2021-08-22 11:05 | disposition home or self-care (01) ==
PROVIDERS: PCP Family Medicine; Visit Provider Urology
PROC: (CPT 52356; principal; 2021-08-22 07:30)
DX: N20.1 Calculus of ureter (principal); D64.9 Anemia, unspecified; E66.01 Morbid (severe) obesity due to excess calories; Z68.43 Body mass index [BMI] 50.0-59.9, adult; D69.6 Thrombocytopenia, unspecified; K21.9 Gastro-esophageal reflux disease without esophagitis
CPT/HCPCS: 52356; 74420; 82365; J0690; J1790; J2405; J2704; J3010; Q9967

== ENCOUNTER 2021-08-23 00:33 | Observation (INO) | payer OTHER, MEDICAID, SELFPAY ==
[2021-08-23 00:15] VITALS: BP 136/89; PULSE 86; RESP 20; TEMP 36.8; O2SAT 100
[2021-08-23] MEDS: Tamsulosin 0.4 MG CAPCR PO (02:08)
[2021-08-23] MEDS: Lactated Ringers 1,000 ML 125 ML IV ×2 (02:08→09:41)
[2021-08-23] MEDS: Ketorolac 15 MG/ML VIAL IVP ×3 (02:09→13:42)
[2021-08-23] MEDS: Normal Saline Flush 10 ML SYR IVP ×2 (02:09→08:10)
--- NOTE | 2021-08-23 06:52 | HPE_ITS ---
Date of service: 08/23/21 Time of Service: 06:53 Assessment and Plan Assessment and plan (1) Left flank pain: Status: Acute Assessment and plan: Her stone has been successfully treated. Given the timing of her symptoms, she likely has ureteral spasms following ureteroscopy and inadvertent stent removal. This type of discomfort can generally be treated with Toradol. We will use IV Toradol until her nausea and vomiting are under control then we can switch to oral Toradol as an outpatient. She was given a single dose of sublingual Zofran at an outside facility and IV Phenergan here at [facility]. I will add in IV Zofran to the Phenergan History of Present Illness History of Present Illness Chief Complaint: Postoperative pain Narrative: This is a 41-year-old woman who has a history of kidney stones. She had a recent hospitalization at an outside facility during which she had renal colic and a urinary tract infection. She was treated with placement of a ureteral stent and antibiotics. Once the infection had cleared, she was brought in to our facility for uret eroscopy and holmium laser lithotripsy of her stone. The surgery was accomplished yesterday. The stone was successfully removed and the ureteral stent was replaced. We left a safety string on the ureteral stent so that it could be removed in the office early next week. The patient called last evening complaining of worsening pain and nausea. The stent had become dislodged and was removed prematurely. She presented to an outside facility that had no inpatient availability. The emergency room physician contacted me and felt the patient would need an admission for pain control. She was then transferred to our facility. He does have chronic pain issues related to fibromyalgia, lumbosacral spine disease, osteoarthritis and migraine headaches. She does have a controlled substance agreement dating back to 2017. Review of Systems Narrative: No fevers or chills No vision change or dysphasia No diabetes or thyroid dysfunction No sputum production or hemoptysis No chest pain or palpitations No hepatitis, ulcers, jaundice Hx migraines. No seizures, strokes No bleeding disorders or anemia Hx fibromyalgia. Chronic back and joint pain. No gout PFSH All Active Problems (Updated 08/22/21 @ 07:05 by Roberto Ibarra MD) Left ureteral stone (Acute) Right lumbar radiculitis (Chronic) Anemia (Acute 08/08/13) iron deficient Asthma (Acute) Back pain with sciatica (Acute 03/24/17) Chondromalacia, right hip (Acute 10/14/17) Chronic pain syndrome (Acute 11/12/16) 11/12/16-CONTROLLED SUBSTANCE AGREEMENT Depressive disorder (Acute 08/08/13) [facility] psychiatry eval. Dr.Brian Oconnor Essential thrombocytopenia (Acute 06/15/12) Fatigue (Acute 01/14/16) Femoroacetabular impingement of right hip (Acute 08/26/17) Fibromyalgia (Acute 01/01/14) probable/[facility] eval. RHeumatology : exci/Lyrica Generalized-onset seizures (Acute 07/19/12) : EEG :negative/Topamax started for migraines History of back surgery (Acute) 2007; : [facility]:chronic post-laminectomy syndrome/repeat mri pending [facility] Dr[facility]/no sx indicated/chronic inflamm.right S1 nerve root: PT 12-04-2016 Pain clinic [facility]: lumbar/sacral transforaminal injection at the right S1 Hx of galactorrhea (Acute) [facility] Endo. eval.: negative/mammo.neg. Intractable classical migraine (Acute 02/25/15) : Topamax and Imitrex started/ Pes anserinus bursitis of left knee (Acute 02/01/15) Primary osteoarthritis of left knee (Acute 08/04/16) DEPO MEDROL 07/29/21 Quadriceps tendonitis (Acute 02/01/15) Recurrent UTI (Acute 03/27/15) [facility] urology 04-03: U/S pending/ consider prophylaxis Vaginal discharge, non-hemorrhagic (Acute 01/14/16) Trochanteric bursitis, right hip (Chronic) Injected: 10/21/2018; 04/09/2018 Patellar tendinitis of left knee (Acute) Ulnar neuropathy of left upper extremity (Acute) Tendonitis of left rotator cuff (Acute) Binge eating disorder (Acute) Left flank pain (Acute) History of kidney stones (Chronic) Status post tonsillectomy and adenoidectomy (Acute) Status post cholecystectomy (Acute) History of bilateral ligation of fallopian tubes (Acute) Back pain with radiation (Acute 06/23/14) Kidney stones (Chronic) Patellar tendinitis, right knee (Acute) Osteoarthritis of right knee (Acute) Bipolar depression (Acute) Tremor observed on examination (Acute) Morbid obesity (Acute) Osteoarthritis of left knee (Acute) depo medrol 07/29/21 Medical History (Updated 08/22/21 @ 07:05 by Roberto Ibarra MD) Anemia Anxiety Asthma Back pain with sciatica Bipolar II disorder Chronic low back pain Chronic pain syndrome Class 3 severe obesity due to excess calories with serious comorbidity and body mass index (BMI) of 50.0 to 59.9 in adult Depression Depressive disorder Dizziness Essential thrombocytopenia Facial pressure Fibromyalgia Generalized-onset seizures Pt. states she doesn't have seizures anymore, stated in 2019 she did a 10 day stay for EEG monitoring and found shedoesn't have seizures anymore, and stated previous seizures were a result of previous head trauma. Last noted seizures was 2011 GERD (gastroesophageal reflux disease) History of galactorrhea Internal derangement of left knee Intractable classical migraine Leukocytosis Low back pain Migraine without aura Myoclonic jerking Nasal congestion Obesity Obstructive sleep apnea Pes anserinus bursitis of left knee Pharyngoesophageal dysphagia Primary osteoarthritis of left knee Quadriceps tendonitis Rectocele Recurrent UTI Subacute vaginitis Surgical History Arthroplasty of knee (01/23/15) arthroscopy l knee 2015 Cholecystectomy (~05/2008) H/O of hemilaminectomy with foraminotomy and discectomy 2018 History of cystoscopy L retrograde pyelogram ureteroscopy w/homium laser L5 S1 surgery (~2007) L5-S1 surgery for HNP no right achilles reflex l4 surgery Ligation of fallopian tube (~2012) Tonsillectomy and adenoidectomy (~1992) Family History Mother Essential hypertension Agoraphobia Depression Hyperlipidemia Mental disorder COPD (chronic obstructive pulmonary disease) Pena esophagus Asthma Father Diabetes Essential hypertension Quadriplegia S/P MVA AGE 23 (1985) Sister Depression Substance abuse Brother No problems noted. Brother No problems noted. Son Asthma Family History Substance abuse SEVERAL MATERNAL RELATIVES Alcohol abuse Depression Suicide Suicide attempt Maternal Grandfather Diabetes Heart disease Lung cancer Esophageal cancer Paternal Grandfather , Suicide Depression Maternal Grandmother Breast cancer Paternal Grandmother Diabetes Essential hypertension Maternal Aunt Breast cancer Social History Smoking/Tobacco Use Status: Never Second Hand Exposure: Yes Smoking risk assessment performed?: Yes Alcohol Intake: current Alcohol Intake frequency: a few times a month Alcohol type: beer Drug use: Current Sobriety Substance use type: does not use, marijuana, crack/cocaine, hallucinogens, opiates and painkillers Details: clean since 2007 Caregiver/Support person: No Household members: spouse and children Housing: house Communication Needs: Corrective Lenses Do you need help understanding health information?: Rarely 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 Pets and animals: Yes Pets and animals: cat(s), dog(s), farm animals and other Sexually active: Yes Do you think of yourself as: bisexual Current gender identity: female What is your relationship status?: How often do you talk on the phone with friends or family?: twice per week How often do you get together with friends or relatives?: decline to answer How often do you attend restorationism or restorationist services?: decline to answer Do you belong to any clubs or organized social groups?: no Panel score (0-1 are the most socially isolated patients): 1 What type of physical activity do you participate in: walking Duration: < 15 minutes/day Frequency: 1-2 times per week Fide/Anglican: No preference Special fide needs: No Seatbelt use: never Helmet use: No Drive intox or ride w/intox car pick up driver: No Working smoke detector in home: Yes Carbon monox detector in home: Yes Firearms in home: Yes Firearms unloaded and locked: Yes Do you feel safe at home: Yes Do you feel safe in your relationship?: Yes Meds Allergies and Home Medications Allergies Allergy/AdvReac Type Severity Reaction Status Date / Time bee venom protein (honey bee) Allergy Severe Swelling/Ed Verified 08/21/21 09:19 tram meloxicam Allergy Severe Anaphylaxis Verified 08/21/21 12:11 oxycodone HCl [From Percocet] Allergy Severe vomiting, Verified 08/21/21 12:11 hives adhesive AdvReac Intermediate skin Verified 08/21/21 09:19 irritation prednisone AdvReac Intermediate edema Verified 08/21/21 09:19 bupropion HCl AdvReac Pt states Verified 08/21/21 12:11 [From Wellbutrin] it lowers my seizure threshold Steroids AdvReac Intermediate Pt states Uncoded 08/21/21 12:11 she gets very violently angry Home Medications Medication Instructions Recorded Confirmed Type lidocaine 5 % topical patch 1 ea topical DAILY ##1 12/29/16 08/23/21 Rx (Lidoderm) promethazine 12.5 mg tablet 12.5 mg PO TID PRN migraine 03/22/18 08/23/21 Rx headache #25 tab-caps fluticasone propionate 50 1 spray intranasal DAILY #16 grams 08/04/18 08/23/21 Rx mcg/actuation nasal spray,suspension (Flonase Allergy Relief) fexofenadine 180 mg tablet 180 mg PO DAILY PRN 11/15/18 08/23/21 History triamcinolone acetonide 0.1 % 1 applic topical BID PRN 03/31/19 08/23/21 History topical cream methocarbamol 750 mg tablet 750 - 1,500 mg PO TID PRN muscle 05/06/19 08/23/21 Rx spasm #30 tab-caps tramadol 50 mg tablet 50 mg PO BID PRN pain #25 tab-caps 05/06/19 08/23/21 Rx trazodone 100 mg tablet 100 mg PO HS #90 tabs 05/06/19 08/23/21 Rx omeprazole 40 mg capsule,delayed 40 mg PO BID 03/25/21 08/23/21 History release gabapentin 100 mg capsule 300 mg PO BID 07/29/21 08/23/21 History lamotrigine 200 mg tablet 300 mg PO DAILY 07/29/21 08/23/21 History (Lamictal) hydroxyzine pamoate 25 mg capsule 25 mg PO BID PRN 08/06/21 08/23/21 History multivitamin 1 tab PO DAILY 08/06/21 08/23/21 History naproxen sodium 220 mg tablet 440 mg PO DAILY PRN 08/06/21 08/23/21 History oxybutynin chloride 5 mg tablet 5 mg PO BID-TID PRN bladder spasms 08/09/21 08/23/21 Rx #20 tabs ciprofloxacin HCl 250 mg tablet 250 mg PO BID #14 tabs 08/16/21 08/23/21 Rx famotidine 20 mg tablet 20 mg PO BID 08/22/21 08/23/21 History Exam Narrative Exam Narrative: She looks fairly comfortable this morning Her vital signs are documented elsewhere The chest wall motion is normal. Her lungs are clear. Cardiac exam shows a regular rate and rhythm Her abdomen is obese with no guarding or rebound tenderness She is awake and alert Results Last Vital Signs Temp 36.8 C 08/23/21 00:15 Pulse 86 08/23/21 00:15 Resp 20 08/23/21 00:15 BP 136/89 08/23/21 00:15 Pulse Ox 100 08/23/21 00:15
[2021-08-23] MEDS: Phenazopyridine 200 MG TAB PO ×2 (08:09→13:43)
[2021-08-23] MEDS: Oxybutynin 5 MG TAB PO ×2 (08:09→13:43)
[2021-08-23] MEDS: Lidocaine 5% Patch 1 PATCH TP (09:34)
[2021-08-23] MEDS: Multivitamin TAB 1 TAB PO (09:34)
[2021-08-23] MEDS: Omeprazole 20 MG CAPCR 40 MG PO (09:35)
[2021-08-23] MEDS: Gabapentin 300 MG CAP PO (09:35)
[2021-08-23] MEDS: Famotidine 20 MG TAB PO (09:35)
[2021-08-23] MEDS: lamoTRIgine 100 MG TAB 300 MG PO (10:57)
[2021-08-23] MEDS: Acetaminophen 500 MG TAB 1000 MG PO (10:57)
--- NOTE | 2021-08-23 11:06 | PDOC.CMIN ---
- If Service Date Differs Date of service: 08/23/21 Time of Service: 11:06 Care Management Initial Assess REASON FOR HOSPITALIZATION:: flank pain PAST MEDICAL HISTORY/PAST SURGICAL HISTORY:: All Active Problems. Left ureteral stone (Acute). Right lumbar radiculitis (Chronic). Anemia (Acute 08/08/13). iron deficient. Asthma (Acute). Back pain with sciatica (Acute 03/24/17). Chondromalacia, right hip (Acute 10/14/17). Chronic pain syndrome (Acute 11/12/16). 11/12/16-CONTROLLED SUBSTANCE AGREEMENT. Depressive disorder (Acute 08/08/13). [facility] psychiatry eval. Dr.Brian Oconnor . Essential thrombocytopenia (Acute 06/15/12). Fatigue (Acute 01/14/16). Femoroacetabular impingement of right hip (Acute 08/26/17). Fibromyalgia (Acute 01/01/14). probable/[facility] eval. RHeumatology : exci/Lyrica. Generalized-onset seizures (Acute 07/19/12). : EEG :negative/Topamax started for migraines. History of back surgery (Acute). 2007;. : [facility]:chronic post-laminectomy syndrome/repeat mri pending. [facility]/no sx indicated/chronic inflamm.right S1 nerve root: PT. 12-04-2016 Pain clinic [facility]: lumbar/sacral transforaminal injection at the right S1. Hx of galactorrhea (Acute). [facility] Endo. eval.: negative/mammo.neg. . Intractable classical migraine (Acute 02/25/15). : Topamax and Imitrex started/. Pes anserinus bursitis of left knee (Acute 02/01/15). Primary osteoarthritis of left knee (Acute 08/04/16). DEPO MEDROL 07/29/21. Quadriceps tendonitis (Acute 02/01/15). Recurrent UTI (Acute 03/27/15). [facility] urology 04-03: U/S pending/ consider prophylaxis. Vaginal discharge, non-hemorrhagic (Acute 01/14/16). Trochanteric bursitis, right hip (Chronic). Injected: 10/21/2018; 04/09/2018. Patellar tendinitis of left knee (Acute). Ulnar neuropathy of left upper extremity (Acute). Tendonitis of left rotator cuff (Acute). Binge eating disorder (Acute). Left flank pain (Acute). History of kidney stones (Chronic). Status post tonsillectomy and adenoidectomy (Acute). Status post cholecystectomy (Acute). History of bilateral ligation of fallopian tubes (Acute). Back pain with radiation (Acute 08/08/13). Kidney stones (Chronic). Patellar tendinitis, right knee (Acute). Osteoarthritis of right knee (Acute). Bipolar depression (Acute). Tremor observed on examination (Acute). Morbid obesity (Acute). Osteoarthritis of left knee (Acute). depo medrol 07/29/21. Medical History. Anemia. Anxiety. Asthma. Back pain with sciatica. Bipolar II disorder. Chronic low back pain. Chronic pain syndrome. Class 3 severe obesity due to excess calories with serious comorbidity and body mass index (BMI) of 50.0 to 59.9 in adult. Depression. Depressive disorder. Dizziness. Essential thrombocytopenia. Facial pressure. Fibromyalgia. Generalized-onset seizures. Pt. states she doesn't have seizures anymore, stated in 2019 she did a 10 day stay for EEG monitoring and found shedoesn't have seizures anymore, and stated previous seizures were a result of previous head trauma. Last noted seizures was 2011. GERD (gastroesophageal reflux disease). History of galactorrhea. Internal derangement of left knee. Intractable classical migraine. Leukocytosis. Low back pain. Migraine without aura. Myoclonic jerking. Nasal congestion. Obesity. Obstructive sleep apnea. Pes anserinus bursitis of left knee. Pharyngoesophageal dysphagia. Primary osteoarthritis of left knee. Quadriceps tendonitis. Rectocele. Recurrent UTI. Subacute vaginitis. Surgical History. Arthroplasty of knee (01/23/15). arthroscopy l knee 2014. Cholecystectomy (~05/2008). H/O of hemilaminectomy. with foraminotomy and discectomy 2018. History of cystoscopy. L retrograde pyelogram ureteroscopy w/homium laser. L5 S1 surgery (~2007). L5-S1 surgery for HNP no right achilles reflex. l4 surgery. Ligation of fallopian tube (~2012). Tonsillectomy and adenoidectomy (~1992) PREVIOUS FUNCTIONAL STATUS/SOCIAL/FAMILY SUPPORTS:: Love lives in [place] with her , Robin. 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 She is independent at baseline. CURRENT FUNCTIONAL STATUS:: Love was sleeing soundly when CM attempted to meet with her. Her , Robin, was in the room visiting. He stated that Love had eaten her breakfast, and tolerated it. He stated that she is independent and will not require any services upon discharge. CM will continue to follow. ADVANCE DIRECTIVES:: None on file. Has patient been provided with info about the portal/API?: Yes CODE STATUS:: Full Code INSURANCE COVERAGE / FINANCIAL ISSUES:: [place] [employer]. CURRENT HOME/COMMUNITY SERVICES/EQUIPMENT:: No current services or equipment. PRIMARY CARE PHYSICIAN:: Heide Brooks POTENTIAL DISCHARGE NEEDS:: Follow up appointments. PATIENT/FAMILY EDUCATION NEEDS:: Review discharge instructions and limitations, discussion of self care needs including ask me three. ANTICIPATED BARRIERS TO DISCHARGE:: None identified. TRANSPORTATION:: Via private vehicle by her spouse. PLAN:: Anticipate Love will return home once medically cleared. Her will drive her home via private vehicle. She will follow up with her PCP and discharge plan of care. CM will continue to follow.
[2021-08-23 11:08] VITALS: BP 111/74; PULSE 74; RESP 15; TEMP 36.7; O2SAT 95
--- NOTE | 2021-08-23 13:35 | DSE_ITS ---
Date of service: 08/23/21 Time of Service: 15:45 DS: Diagnosis Discharge Diagnosis (1) Left flank pain: Status: Acute Discharge Plan Disposition Patient Disposition: HOME Condition: Improving Discharge Details Reason For Visit: Flank Pain Admit Date/Time: 08/23/21 00:33 Admit Provider: Roberto Ibarra Attending Provider: Roberto Ibarra Primary Care Provider: Heide Brooks Hospital Course Hospital Course: The patient was accepted in transfer from [facility]. She was brought directly to the medical surgical unit and was treated with IV hydration, analgesics and antiemetics. We also utilized antispasmodics and alpha blockers as needed. Both her nausea and her pain symptoms improve especially with the use of Toradol and Phenergan. As her nausea improved, she was restarted on her maintenance dose of tramadol. When she showed that she is be able to keep her pain medications down without vomiting, she is deemed to be ready for discharge. She remained afebrile throughout the hospitalization. Home Meds and New Rx's Prescriptions: New ketorolac 10 mg tablet 10 mg PO Q6H PRN (Reason: pain) 3 Days Qty: 12 0RF Rx Instructions: may take with tramadol, but do not take with NSAIDS such as naproxen or ibuprofen No Action fluticasone propionate [Flonase Allergy Relief] 50 mcg/actuation spray,suspension 1 spray GT DAILY Qty: 16 3RF Label Comments: cannot take because doing allergy testing Rx Instructions: administer into each nostril fexofenadine 180 mg tablet 180 mg PO DAILY PRN triamcinolone acetonide 0.1 % cream 1 applic TP BID PRN Label Comments: Pt stated on 08/22/21 that she has not used in years. Rx Instructions: local application twice a day on right shoulder until rash is gone omeprazole 40 mg capsule,delayed release(DR/EC) 40 mg PO BID lamotrigine [Lamictal] 200 mg tablet 300 mg PO DAILY gabapentin 100 mg capsule 300 mg PO BID lidocaine [Lidoderm] 1 EACH adhesive patch,medicated 1 ea Topical DAILY Qty: 1 4RF promethazine 12.5 mg tablet 12.5 mg PO TID PRN (Reason: migraine headache) Qty: 25 2RF methocarbamol 750 mg tablet 750 - 1,500 mg PO TID PRN (Reason: muscle spasm) Qty: 30 0RF Rx Instructions: Take 1-2 tablets by mouth three times a day as needed only for back pain tramadol 50 mg tablet 50 mg PO BID PRN (Reason: pain) Qty: 25 0RF Rx Instructions: take one tablet twice a day as needed trazodone 100 mg tablet 100 mg PO HS Qty: 90 4RF naproxen sodium 220 mg tablet 440 mg PO DAILY PRN multivitamin Tablet 1 tab PO DAILY hydroxyzine pamoate 25 mg capsule 25 mg PO BID PRN oxybutynin chloride 5 mg tablet 5 mg PO BID-TID PRN (Reason: bladder spasms) Qty: 20 0RF ciprofloxacin HCl 250 mg tablet 250 mg PO BID Qty: 14 0RF famotidine 20 mg Tablet 20 mg PO BID Discharge Instructions Instructions: Acute Nausea and Vomiting (DC) Additional Instructions: use promethazine every 6 hours as needed for nausea use tramadol and ketorolac every 6 hours as needed for pain but do not use naproxen while on ketorolac already has followup appt scheduled in my office Stand Alone Forms: Nursing Discharge Form Referrals: Heide Brooks [Primary Care Provider] - (call to make an appointment in the next to weeks ) Activity:: Activity as Tolerated Equipment/Supplies:: No Equipment Needed Diet:: As Tolerated Discharge Orders Discharge Orders: Discharge Order (Routine); Ordered 08/23/21 Ordered By: Roberto Ibarra DS: Summary Time Spent with Patient providing and/or coordinating discharge services: Less than 30 minutes Status at Discharge Functional status at discharge: independent ambulation Overall status at discharge: patient is progressing back to baseline Mental Status: mental status grossly normal Speech and Movement: speech and movement normal Mood: congruent mood Affect: normal affect Exam Narrative Exam Narrative: At the time of discharge, she appears more comfortable than upon admission Her vital signs are documented elsewhere in this chart Her abdomen is soft with no guarding or rebound tenderness She is awake and alert Psych Mental Status: mental status grossly normal Speech and Movement: speech and movement normal Mood: congruent mood Affect: normal affect DS: Data Vitals/I&O Vitals and I&O: Vital Signs Temperature 36.7 C 08/23/21 11:08 Temperature Source Temporal Artery Scan 08/23/21 11:08 Pulse 74 08/23/21 11:08 Pulse Rhythm Regular 08/23/21 07:40 Respiratory Rate 15 08/23/21 11:08 Respiratory Effort 08/23/21 07:40 Respiratory Depth Normal 08/23/21 07:40 Respiratory Pattern Normal 08/23/21 07:40 Blood Pressure 111/74 08/23/21 11:08 Pulse Oximetry 95 08/23/21 11:08 Oxygen Delivery Method Room Air 08/23/21 11:08 Oxygen Flow Rate 0 08/23/21 11:08 Pain Level 4 08/23/21 11:08 Intake & Output 08/22/21 08/23/21 08/23/21 23:59 11:59 23:59 Intake Total 1183.75 / 1183.75 Output Total 300 / 700 400 / 700 Balance 883.75 / 483.75 -400 / 483.75 Weight 143.5 kg Intake: IV 943.75 / 943.75 Oral 240 / 240 Output: Urine 300 / 700 400 / 700 Other: Urine Color Dark Alyssa Urine Appearance Hematuria Cloudy Voiding Methods Toilet Toilet PFSH All Active Problems (Updated 08/22/21 @ 07:05 by Roberto Ibarra MD) Left ureteral stone (Acute) Right lumbar radiculitis (Chronic) Anemia (Acute 08/08/13) iron deficient Asthma (Acute) Back pain with sciatica (Acute 03/24/17) Chondromalacia, right hip (Acute 10/14/17) Chronic pain syndrome (Acute 11/12/16) 11/12/16-CONTROLLED SUBSTANCE AGREEMENT Depressive disorder (Acute 08/08/13) [facility] [place]. Dr.Brian Oconnor Essential thrombocytopenia (Acute 06/15/12) Fatigue (Acute 01/14/16) Femoroacetabular impingement of right hip (Acute 08/26/17) Fibromyalgia (Acute 01/01/14) probable/[facility] eval. RHeumatology : exci/Lyrica Generalized-onset seizures (Acute 07/19/12) : EEG :negative/Topamax started for migraines History of back surgery (Acute) 2007; : [facility]:chronic post-laminectomy syndrome/repeat mri pending [facility]/no sx indicated/chronic inflamm.right S1 nerve root: PT 12-04-2016 Pain clinic [facility]: lumbar/sacral transforaminal injection at the right S1 Hx of galactorrhea (Acute) [facility] Endo. eval.: negative/mammo.neg. Intractable classical migraine (Acute 02/25/15) : Topamax and Imitrex started/ Pes anserinus bursitis of left knee (Acute 02/01/15) Primary osteoarthritis of left knee (Acute 08/04/16) DEPO MEDROL 07/29/21 Quadriceps tendonitis (Acute 02/01/15) Recurrent UTI (Acute 03/27/15) [facility] urology 04-03: U/S pending/ consider prophylaxis Vaginal discharge, non-hemorrhagic (Acute 01/14/16) Trochanteric bursitis, right hip (Chronic) Injected: 10/21/2018; 04/09/2018 Patellar tendinitis of left knee (Acute) Ulnar neuropathy of left upper extremity (Acute) Tendonitis of left rotator cuff (Acute) Binge eating disorder (Acute) Left flank pain (Acute) History of kidney stones (Chronic) Status post tonsillectomy and adenoidectomy (Acute) Status post cholecystectomy (Acute) History of bilateral ligation of fallopian tubes (Acute) Back pain with radiation (Acute 08/08/13) Kidney stones (Chronic) Patellar tendinitis, right knee (Acute) Osteoarthritis of right knee (Acute) Bipolar depression (Acute) Tremor observed on examination (Acute) Morbid obesity (Acute) Osteoarthritis of left knee (Acute) depo medrol 07/29/21 Medical History (Updated 08/22/21 @ 07:05 by Roberto Ibarra MD) Anemia Anxiety Asthma Back pain with sciatica Bipolar II disorder Chronic low back pain Chronic pain syndrome Class 3 severe obesity due to excess calories with serious comorbidity and body mass index (BMI) of 50.0 to 59.9 in adult Depression Depressive disorder Dizziness Essential thrombocytopenia Facial pressure Fibromyalgia Generalized-onset seizures Pt. states she doesn't have seizures anymore, stated in 2018 she did a 10 day stay for EEG monitoring and found shedoesn't have seizures anymore, and stated previous seizures were a result of previous head trauma. Last noted seizures was 2011 GERD (gastroesophageal reflux disease) History of galactorrhea Internal derangement of left knee Intractable classical migraine Leukocytosis Low back pain Migraine without aura Myoclonic jerking Nasal congestion Obesity Obstructive sleep apnea Pes anserinus bursitis of left knee Pharyngoesophageal dysphagia Primary osteoarthritis of left knee Quadriceps tendonitis Rectocele Recurrent UTI Subacute vaginitis Surgical History Arthroplasty of knee (01/23/15) arthroscopy l knee 2015 Cholecystectomy (~05/2008) H/O of hemilaminectomy with foraminotomy and discectomy 2018 History of cystoscopy L retrograde pyelogram ureteroscopy w/homium laser L5 S1 surgery (~2007) L5-S1 surgery for HNP no right achilles reflex l4 surgery Ligation of fallopian tube (~2012) Tonsillectomy and adenoidectomy (~1992) Family History Mother Essential hypertension Agoraphobia Depression Hyperlipidemia Mental disorder COPD (chronic obstructive pulmonary disease) Pena esophagus Asthma Father Diabetes Essential hypertension Quadriplegia S/P MVA AGE 23 (1985) Sister Depression Substance abuse Brother No problems noted. Brother No problems noted. Son Asthma Family History Substance abuse SEVERAL MATERNAL RELATIVES Alcohol abuse Depression Suicide Suicide attempt Maternal Grandfather Diabetes Heart disease Lung cancer Esophageal cancer Paternal Grandfather , Suicide Depression Maternal Grandmother Breast cancer Paternal Grandmother Diabetes Essential hypertension Maternal Aunt Breast cancer Social History Smoking/Tobacco Use Status: Never Second Hand Exposure: Yes Smoking risk assessment performed?: Yes Alcohol Intake: current Alcohol Intake frequency: a few times a month Alcohol type: beer Drug use: Current Sobriety Substance use type: does not use, marijuana, crack/cocaine, hallucinogens, opiates and painkillers Details: clean since 2007 Caregiver/Support person: No Household members: spouse and children Housing: house Communication Needs: Corrective Lenses Do you need help understanding health information?: Rarely 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 Pets and animals: Yes Pets and animals: cat(s), dog(s), farm animals and other Sexually active: Yes Do you think of yourself as: bisexual Current gender identity: female What is your relationship status?: How often do you talk on the phone with friends or family?: twice per week How often do you get together with friends or relatives?: decline to answer How often do you attend christianity or baptism services?: decline to answer Do you belong to any clubs or organized social groups?: no Panel score (0-1 are the most socially isolated patients): 1 What type of physical activity do you participate in: walking Duration: < 15 minutes/day Frequency: 1-2 times per week Fide/Yazidi: No preference Special fide needs: No Seatbelt use: never Helmet use: No Drive intox or ride w/intox tank driver: No Working smoke detector in home: Yes Carbon monox detector in home: Yes Firearms in home: Yes Firearms unloaded and locked: Yes Do you feel safe at home: Yes Do you feel safe in your relationship?: Yes
[2021-08-23] MEDS: Ondansetron 4 MG/2 ML VIAL IVP (13:42)
[2021-08-23 14:51] VITALS: BP 113/67; PULSE 83; RESP 17; TEMP 37.1; O2SAT 93
--- NOTE | 2021-08-23 15:49 | W.PM.PROGNOT ---
Date of Service Date of service: 08/23/21 Time of Service: 15:49 Assessment and Plan Assessment and plan (1) Left flank pain: Status: Acute Assessment and plan: Her presentation and her clinical course are both consistent with ureteral spasms following ureteroscopy and stent removal. Now that her nausea and pain are under better control, we will discharge her with oral medications. Subjective Subjective Interval history since last seen: The patient has improved throughout the day. She still feels queasy but she is able to tolerate oral nutrition and medications. Exam Narrative Exam Narrative: She does are septic or toxic Her vital signs are documented elsewhere She is awake and alert Objective Last Vital Signs Temp 37.1 C 08/23/21 14:51 Pulse 83 08/23/21 14:51 Resp 17 08/23/21 14:51 BP 113/67 08/23/21 14:51 Pulse Ox 93 08/23/21 14:51
--- NOTE | 2021-08-23 17:08 | PDOC.CMDIS ---
- If Service Date Differs Date of service: 08/23/21 Time of Service: 17:08 LACE Index Scoring Tool - Questions: Length of Stay (in days): 1 Acuity (Admit via E.D.?): No E.D. Visits: 0 - Answers: Total Score: 1 Risk of Readmission: Low Risk Care Management Discharge Reason for Hospitalization: flank pain Discharge Plan: Love will return home with no new services. Her will drive her home via private vehicle. She will follow up with her PCP and discharge plan of care. Patient/Family Education Needs: Review discharge instructions and limitations, discussion of self care needs including ask me three.
== END 2021-08-23 17:00 | disposition home or self-care (01) ==
PROVIDERS: Admitting Provider Urology; PCP Family Medicine; Visit Provider Urology
DX: G89.18 Other acute postprocedural pain (principal); R10.32 Left lower quadrant pain; T83.122A Displacement of indwelling ureteral stent, initial encounter; R11.2 Nausea with vomiting, unspecified; M54.16 Radiculopathy, lumbar region; D50.9 Iron deficiency anemia, unspecified; J45.909 Unspecified asthma, uncomplicated; M79.7 Fibromyalgia; F32.A Depression, unspecified; D69.3 Immune thrombocytopenic purpura; E66.01 Morbid (severe) obesity due to excess calories; Z68.42 Body mass index [BMI] 45.0-49.9, adult
CPT/HCPCS: 96361; 96374; 96375; 96376; J1885; J2405

== ENCOUNTER → 2021-10-25 00:20 | Outpatient (CLI) | payer OTHER, MEDICAID, SELFPAY ==
--- NOTE | 2021-10-25 | DI.MRI_ITS ---
Exam(s) MR LUMBAR SPINE WO EXAM: MR LUMBAR SPINE WO CLINICAL HISTORY: LUMBAR RADICULOPATHY M54.16 LOW BACK PAIN RADIATING DOWN BOTH LEGS. TECHNIQUE: Multiplanar multisequence MRI of the Lumbar spine was performed. COMPARISON: MR MR lumbar spine wo/w from 03/05/2018 FINDINGS: Bones: The last intervertebral disc space is designated the L5/S1 level for the numbering purpose of this examination. The vertebral body heights are well maintained. Alignment is satisfactory. There are degenerative endplate signal changes and loss of signal of the disc at L4-5 and L5-S1. Cord: The conus tip ends at the T12 level. It is of normal size and signal intensity. T12-L1: No disc herniations or bulges are present. No central spinal canal or neural foraminal stenos is. L1-2: No disc herniations or bulges are present. No central spinal canal or neural foraminal stenosis . L2-3: No disc herniations or bulges are present. No central spinal canal or neural foraminal stenosis . L3-4: No disc herniations or bulges are present. No central spinal canal or neural foraminal stenosis . L4-5: There is a diffuse disc bulge. It is eccentric to the right and appears to cause right lateral recess stenosis. It does appear to compress the right L5 nerve root. Hypertrophic changes of the f acets are present. No significant central spinal canal stenosis is present. There is mild narrowing of the neural foramen bilaterally. L5-S1: There is a disc bulge eccentric to the right. No significant central spinal canal stenosis or left neural foraminal stenosis is seen. There is moderate right neural foraminal stenosis again not ed. Soft tissues: The visualized SI joints and sacrum are well maintained. The paraspinal soft tissues ar e unremarkable. IMPRESSION: 1. Diffuse disc bulge eccentric to the right at L4-L5. It does appear to cause right lateral recess stenosis and compresses the right L5 nerve root. 2. Degenerative changes at L4-L5 resulting in neural foraminal stenosis as described above. DATA REPOSITORY:
== END ==
PROVIDERS: PCP Family Medicine; Visit Provider Neurological Surgery
DX: M51.16 Intervertebral disc disorders with radiculopathy, lumbar region (principal); M47.26 Other spondylosis with radiculopathy, lumbar region; M48.061 Spinal stenosis, lumbar region without neurogenic claudication
CPT/HCPCS: 72148

== ENCOUNTER → 2021-11-21 01:29 | Outpatient (CLI) | payer OTHER, MEDICAID, SELFPAY ==
--- NOTE | 2021-11-21 | DI.MRI_ITS ---
Exam(s) MR LUMBAR SPINE WO/W EXAM: MR LUMBAR SPINE WO/W CLINICAL HISTORY: LUMBAR RADICULOPATHY M54.16 DECOMPRESSIVE SURGERY, LOW BACK PAIN TO FEET. TECHNIQUE: Multiplanar multisequence MRI was performed. COMPARISON: MR MR LUMBAR SPINE WO from 10/25/2021 FINDINGS: MR examination lumbosacral spine was performed according to the usual protocol with additional pre an d post contrast T1 fat sat axial and sagittal imaging. Examination is compared with most recent lumb ar spine MRI of October 25, 2021. No significant findings from the lower thoracic spine through L3-4 levels. No disc herniation, centr al canal spinal stenosis, or neural foraminal stenosis at these levels. At L4-5, there is a small to moderate-sized right lateral disc herniation. This appears to be slight ly larger than on the prior examination and may compress the right L5 nerve root in the lateral reces s at this level. No other significant change at this level. At L5-S1, there is a moderate-sized right paracentral disc herniation. This may be slightly more pro minent than on prior examination. No definite neural foraminal impingement but the right S1 nerve ro ot could be impinged at this level. No other significant new findings. No evidence of infectious process or fracture. IMPRESSION: Increased prominence of right-sided disc herniations at L4-5 and L5-S1 since prior examination of Oct. Possibility of impingement/compression of right L5 and/or S1 nerve roots. Please correl ate with neurologic examination. DATA REPOSITORY:
[2021-11-21] MEDS: Normal Saline Flush 10 ML SYR IVP (11:14)
[2021-11-21] MEDS: Gadoterate meglumine 20 ML SYRINGE IVP (11:14)
== END ==
PROVIDERS: PCP Family Medicine; Visit Provider Physician Assistant Medical
DX: M51.26 Other intervertebral disc displacement, lumbar region (principal); M51.27 Other intervertebral disc displacement, lumbosacral region
CPT/HCPCS: 72158

== ENCOUNTER 2022-05-15 07:57 | Outpatient (CLI) | payer OTHER, MEDICAID, SELFPAY ==
[2022-05-15 08:06] VITALS: BP 118/78; PULSE 69; RESP 20; TEMP 36.5; O2SAT 100
[2022-05-15] MEDS: methylPREDNISolone ACETATE 80 MG/ML VIAL IJ (08:40)
[2022-05-15 08:41] VITALS: BP 133/80; PULSE 75; RESP 20; O2SAT 100
[2022-05-15] MEDS: Omnipaque 240 MG/ML 50 ML BTL IJ (08:41)
--- NOTE | 2022-05-15 08:41 | PDOC.PAIN_ITS ---
Date of service: 05/15/22 Time of Service: 09:00 Pain Clinic Procedure Note Procedure Note Procedure Note: Lumbar Epidural Steroid Injection Procedure Note COMMENTS:She was previously evaluated by me in our office. She has done well with this procedure in the distant past. I did re-review her lumbar spine MRI Pre-procedure pain VAS: 4/10 Dx: Lumbosacral radiculopathy Love Barnhart has been referred to the [facility] for lumbar epidural steroid injection. The patient was greeted by the nurse who verified patients name and . Patient was then taken to the fluoroscopy suite. The patient was interviewed and the medial record reviewed. There were no medical, pharmacologic, radiographic, or other structural contraindications to attempting fluoroscopically guided lumbar epidural steroid injection. Risks and expected side effects as well as potential benefits of the procedure were reviewed and voiced concerns expressed. The patient consent form was signed and witnessed. Standard patient time-out procedure was performed. The patient was placed in the prone position on the fluoroscopy table and automated blood pressure cuff and pulse oximeter applied. The skin entry point for entering/approaching the epidural space at L5-S1 and marked. Following thorough chlorhexadine preparation of the skin and draping and 1% lidocaine infiltration of the skin entry point and subcutaneous tissues, a 18 gauge Touhy needle was placed under fluoroscopic guidance and with loss of resistance technique into the epidural space. Needle tip placement and depth were aided and confirmed by fluoroscopy. There was no paresthesia or return of blood or CSF through the needle. 1 cc's of Omnipaque 240 was injected with clear epidural spread confirmed with fluoroscopy. 80mg depomedrol was injected. The needle was then flushed with 2 cc of 1% Lidocaine and removed. There was not any unusual discomfort expressed by Love Barnhart. Patient's vital signs were stable throughout the procedure and were as recorded in nursing records. Follow up plans and appointments were discussed with patient. Post procedure instruction was given as documented in nursing records and having met discharge criteria and was discharged from the Pain Management Center. COMMENTS: If this procedure allows for significant pain relief and/or functional improvement, it can be completed up to 4 times per 12 months. Post-procedure pain VAS was 0/10. Trey Dueñas DO, MPH [facility]
--- NOTE | 2022-05-15 08:44 | DI.RAD_ITS ---
Exam(s) XR PAIN CLINIC LUMBAR SP 2V EXAM: XR PAIN CLINIC LUMBAR SP 2V CLINICAL HISTORY: DX: Lumbar Radiculopathy. TECHNIQUE: Fluoroscopy was provided for the referring physician for guidance with performing pain cl inic injection procedure. COMPARISON: No exams were available for comparison FINDINGS: Please see procedure note for details. Fluoro time: 20.7 seconds RADIATION DOSE DELIVERED: Ka,r=8.5 mGy
== END 2022-05-15 07:58 | disposition home or self-care (01) ==
LOC: PC 07:57
PROVIDERS: PCP Family Medicine; Visit Provider Preventive Medicine Occupational Medicine
DX: M54.17 Radiculopathy, lumbosacral region (principal)
CPT/HCPCS: 62323; 72100; J1040; Q9967

== ENCOUNTER 2022-05-15 11:48 | Outpatient (CLI) | payer OTHER, MEDICAID, SELFPAY ==
--- NOTE | 2022-05-15 09:15 | DI.RAD_ITS ---
Exam(s) XR HIP PELVIS ADULT BL EXAM: XR HIP PELVIS ADULT BL CLINICAL HISTORY: bilateral hip pain. TECHNIQUE: 2D digital imaging was performed. Three views. COMPARISON: No exams were available for comparison FINDINGS: BONES: No acute fracture is present. No bony destructive lesion is seen. JOINTS: No dislocation present. No significant degenerative changes. SOFT TISSUE: Metallic clip overlying sacroiliac joint. Tubal ligation rings. IMPRESSION: Unremarkable radiographs of bilat hips. DATA REPOSITORY: RADIATION DOSE DELIVERED:
== END 2022-05-15 11:49 | disposition home or self-care (01) ==
LOC: DIORS 11:48
PROVIDERS: PCP Family Medicine; Referring Provider Family Medicine; Visit Provider Physician Assistant
DX: M25.551 Pain in right hip (principal); M25.552 Pain in left hip
CPT/HCPCS: 73521

== ENCOUNTER 2024-03-09 00:39 | Outpatient (CLI) | payer OTHER, SELFPAY ==
--- NOTE | 2024-03-09 | DI.RAD_ITS ---
Exam(s) XR CHEST 2V PA LATERAL EXAM: XR CHEST 2V PA LATERAL CLINICAL HISTORY: COUGH,R05.9,CHRONIC SINUSITIS,J32.9. TECHNIQUE: 2D digital imaging was performed. COMPARISON: No exams were available for comparison FINDINGS: 2 views: Heart size is normal. The mediastinum is not widened. Lungs are clear. No infiltrates nor pleural effusions. IMPRESSION: No acute pulmonary findings. DATA REPOSITORY: RADIATION DOSE DELIVERED:
== END 2024-03-09 00:59 ==
PROVIDERS: PCP Family Medicine; Visit Provider Family Medicine
DX: J32.9 Chronic sinusitis, unspecified (principal)
CPT/HCPCS: 71046

== ENCOUNTER 2024-03-09 07:34 | Outpatient (CLI) | payer OTHER, SELFPAY ==
[2024-03-09 07:55] LABS: Abs Immature Grans 0.02 10^3/uL (0.0-0.06); Absolute Eosinophil Count 0.21 10^3/uL (0.0-0.7); Absolute Monocyte Count 0.41 10^3/uL (0.1-0.8); Absolute Neutrophil Count 3.52 10^3/uL (1.2-6.7); Basophils % 1.6 %; Eosinophils % 3.3 %; HCT 38.6 % (36.0-46.0); HGB 12.6 g/dL (11.2-15.7); Immature Grans % 0.3 %; MCH 30.7 pg (27.0-33.0); MCHC 32.6 % (32.0-36.0); MCV 94 fL (80-95); MPV 10.8 fL (8.0-11.0); Monocytes % 6.4 %; Neutrophils % 55.4 %; Platelet Count 203 10^3/uL (130-400); RBC 4.11 10^6/uL (3.93-5.22); RDW-SD 41.9 fL; WBC 6.36 10^3/uL (4.4-10.8)
[2024-03-09 09:04] LABS: ALT 29 U/L (14-59); AST 23 U/L (15-37); Alkaline Phosphatase 87 U/L (46-116); BUN 21 mg/dL (7-18); Bilirubin, Total 0.74 mg/dL (0.2-1.0); CREATININE 0.8 mg/dL (0.55-1.02); Calcium 9.4 mg/dL (8.5-10.1); Chloride 106 mmol/L (98-107); Estimated GFR 94.87 (mL/min/1.73m2); Glucose 93 mg/dL (74-106); Sodium 144 mmol/L (136-145); Total Protein 7.2 g/dL (6.4-8.2); Vitamin B12 963 pg/mL (193-986); Vitamin D 25 Total 39.8 ng/mL (30-100)
== END 2024-03-09 07:35 | disposition home or self-care (01) ==
LOC: LBO 07:34
PROVIDERS: PCP Family Medicine; Referring Provider Family Medicine; Visit Provider Family Medicine
DX: F31.81 Bipolar II disorder (principal); Z98.84 Bariatric surgery status; E55.9 Vitamin D deficiency, unspecified
CPT/HCPCS: 36415; 80053; 82306; 82607; 85025

== ENCOUNTER 2024-04-13 10:02 | Outpatient (CLI) | payer OTHER, SELFPAY ==
[2024-04-13 10:20] VITALS: BP 116/63; PULSE 74; RESP 20; TEMP 36.6; O2SAT 99
[2024-04-13 10:52] VITALS: PULSE 69; RESP 11; O2SAT 100
[2024-04-13 10:54] VITALS: BP 125/74; PULSE 70; PULSE 71; RESP 12; O2SAT 100
[2024-04-13 11:00] VITALS: BP 124/77; PULSE 78; PULSE 81; RESP 16; O2SAT 100
[2024-04-13 11:01] VITALS: PULSE 71; RESP 14; O2SAT 100
--- NOTE | 2024-04-13 11:05 | DI.RAD_ITS ---
Exam(s) XR PAIN CLINIC LUMBAR SP 2V EXAM: XR PAIN CLINIC LUMBAR SP 2V CLINICAL HISTORY: Dx: Lumbar Radiculopathy. TECHNIQUE: Fluoroscopy was provided for the referring physician for guidance with performing pain cl inic injection procedure. COMPARISON: No exams were available for comparison FINDINGS: Please see procedure note for details. Fluoro time: 20.9 seconds RADIATION DOSE DELIVERED: Ka,r=5.42 mGy
--- NOTE | 2024-04-13 11:06 | PDOC.PAIN_ITS ---
Date of service: 04/13/24 Time of Service: 11:06 Pain Managment Procedure Note Procedure Note Procedure Note: PROCEDURE NOTE RIGHT S1 TRANSFORAMINAL EPIDURAL STEROID INJECTION Chief Complaint: RIGHT leg pain. Date of Service: April 13, 2024 Patient: Love Barnhart Provider: Trey Dueñas DO, MPH Love Barnhart has been referred to the [facility] for a transforaminal epidural steroid injection. Pre-operative diagnosis: Lumbosacral Radiculopathy ICD-10 M54.17 Post-operative diagnosis: Same Pre-Procedure Pain: VAS= 6/10 while moving Comments: I previously evaluated the patient in our clinic and their symptoms remain the same as they were at that time. Love was interviewed and the medical record reviewed. There were no medical, pharmacologic, radiographic or other structural contraindications to attempting a fluoroscopically-guided transforaminal lumbar epidural steroid injection. The risks, benefits, and potential side effects were reviewed with the patient. Risks include, but are not limited to, [id number] headache, infection, bleeding, nerve injury, spinal cord damage, allergic reaction, possible increase in symptoms over the ensuing 24 to 48 hours, paralysis, and . The patient appeared to understand, questions were answered to the patient?s satisfaction and the patient agreed to proceed. Once I obtained informed verbal consent, the printed consent form was signed by the patient and myself. A standard time-out procedure was performed. Love was placed in the prone position on the fluoroscopy table and automated blood pressure cuff, three lead EKG, and pulse oximeter were applied. The skin entry point for entering/approaching the S1 space for the transforaminal epidural steroid injection was marked. Following thorough chlorhexadine preparation of the skin and draping, 2 ml of 1% lidocaine was infiltrated into the skin over the entry point and subcutaneous tissues. Under fluoroscopic guidance, in ipsilateral oblique view, a co-axial approach using a 5 22G spinal needle was advanced into the right S1 foramina. The needle was advanced to the superio-posterior aspect of the neural foramen under lateral view. Oblique and AP views were rechecked. Under AP and lateral views, 1 ml of Omnipaque-240 was injected while visualized with fluoroscopy. There was no evidence of in travascular or intrathecal uptake, the epidural space was delineated. Next 1.5 ml of preservative-free Dexamethasone (10 mg/ml) was injected after negative aspiration. This was followed by 1 ml of preservative-free 1% lidocaine. (49 mls of Omnipaque-240 was wasted) There was no unusual discomfort expressed by Love. The needle was withdrawn without difficulty. Love was observed and was without hemodynamic, neurologic, or allergic reactions.? Fluoroscopic images were digitally archived. Love's vital signs were stable throughout the procedure and were as recorded in the docflowsheet by the nursing staff.? If given, dosages of intravenous drugs for anxiolysis and analgesia were documented in MAR. Follow up plans and appointments were discussed with Love. Post procedure instruction was given as documented in nursing records and having met discharge criteria Love was discharged from the [facility]. COMMENTS: Post-procedure pain: VAS= 0/10 while moving. Love to contact [facility] as needed. If at least 50% improvement in pain and/or function for at least 3 months is achieved, this procedure can be repeated. I personally performed this entire procedure. TREY DUEÑAS DO, MPH ABPMR-subspecialty board certification in Pain Medicine [facility]
[2024-04-13] MEDS: Omnipaque 240 MG/ML 50 ML BTL IJ (11:16)
[2024-04-13] MEDS: Dexamethasone Sod. Phos./Pres-Free 10 MG/ML VIAL IJ (11:16)
[2024-04-13] MEDS: Nerve Block Tray 1 EACH MC (11:16)
== END 2024-04-13 10:03 | disposition home or self-care (01) ==
LOC: PC 10:03
PROVIDERS: PCP Family Medicine; Visit Provider Preventive Medicine Occupational Medicine
DX: M54.17 Radiculopathy, lumbosacral region (principal)
CPT/HCPCS: 64483; 72100; J1100; Q9967

== ENCOUNTER 2024-05-05 08:03 | Outpatient (CLI) | payer OTHER, SELFPAY ==
[2024-05-05 07:59] LABS: Abs Immature Grans 0.01 10^3/uL (0.0-0.06); Absolute Basophil Count 0.08 10^3/uL (0.0-0.2); Absolute Eosinophil Count 0.13 10^3/uL (0.0-0.7); Absolute Lymphocyte Count 2.12 10^3/uL (1.2-3.4); Absolute Monocyte Count 0.39 10^3/uL (0.1-0.8); Absolute Neutrophil Count 2.71 10^3/uL (1.2-6.7); Basophils % 1.5 %; Eosinophils % 2.4 %; HCT 36.1 % (36.0-46.0); HGB 12.3 g/dL (11.2-15.7); Immature Grans % 0.2 %; MCH 31.1 pg (27.0-33.0); MCHC 34.1 % (32.0-36.0); MCV 91 fL (80-95); MPV 10.9 fL (8.0-11.0); Monocytes % 7.2 %; Neutrophils % 49.7 %; Platelet Count 206 10^3/uL (130-400); RBC 3.96 10^6/uL (3.93-5.22); RDW 11.8 % (11.7-14.6); RDW-SD 39.5 fL; WBC 5.44 10^3/uL (4.4-10.8)
[2024-05-05 08:05] LABS: Bilirubin Negative (Negative); Blood Negative (Negative); Clarity Clear (Clear); Glucose Negative (Negative); Ketones Negative (Negative); Leukocyte Esterase Negative (Negative); Nitrite Negative (Negative); Specific Gravity >= 1.030 (1.005-1.025); Urobilinogen 0.2 mg/dL (Up to 0.2); pH 5.5 (5-8)
[2024-05-05 08:43] LABS: Ferritin 37 ng/mL (8-252)
[2024-05-05 08:51] LABS: Iron 82 ug/dL (50-170); Total Iron Binding Capacity 322 ug/dL (250-450); Transferrin Sat 25 % (15-50)
== END 2024-05-05 08:04 | disposition home or self-care (01) ==
LOC: LBO 08:04
PROVIDERS: PCP Family Medicine; Visit Provider Physician Assistant
DX: R10.13 Epigastric pain (principal); R10.2 Pelvic and perineal pain
CPT/HCPCS: 36415; 81003; 82728; 83540; 83550; 84443; 85025; 87086

== ENCOUNTER 2024-05-24 00:45 | Outpatient (CLI) | payer OTHER, SELFPAY ==
--- NOTE | 2024-05-24 | DI.US_ITS ---
Exam(s) US ABDOMEN LIMITED EXAM: US ABDOMEN LIMITED CLINICAL HISTORY: CONSTIPATION, UNSPECIFIED K59.00 EPIGASTRIC PAIN R10.13 TECHNIQUE: Ultrasound abdomen performed using standard protocol. COMPARISON: CT CT ABDOMEN PELVIS WO from 10/06/2023 FINDINGS: LIVER: Normal size. Normalechogenicity. No focal liver lesions are seen.. GALLBLADDER: Cholecystectomy. BILIARY SYSTEM: No intrahepatic or extrahepatic biliary ductal dilation. RIGHT KIDNEY: Normal size. No evidence of renal calculi. No evidence of hydronephrosis. No suspicious renal mass. No cyst identified. PANCREAS: Normal where visualized. ABDOMINAL AORTA AND IVC: Visualized portions normal caliber. ASCITES: None seen. IMPRESSION: Status post cholecystectomy. No acute abnormality DATA REPOSITORY:
--- NOTE | 2024-05-24 | DI.US_ITS ---
Exam(s) US PELVIS EXAM: US PELVIS CLINICAL HISTORY: PELVIC AND PERINEAL PAIN, R10.2 TECHNIQUE: Transabdominal was performed using standard protocol. COMPARISON: CT CT ABDOMEN PELVIS WO from 10/06/2023 FINDINGS: The exam is limited by lack of urinary bladder distention. UTERUS: Anteverted. 8.5 x 5.4 x 5.6 cm Endometrium: 8 mm Myometrium: Unremarkable. Cervix: Unremarkable. OVARIES: Right: Not visualized Left: Cyst or mass: None. DOPPLER: Color: Symmetric and uniform flow to both ovaries. No hyperemia. CUL-DE-SAC: Free fluid: None. IMPRESSION: 1. Limited exam due to suboptimal bladder distention and lack of transvaginal imaging.. 2. The uterus and left ovary are unremarkable as visualized. DATA REPOSITORY:
--- NOTE | 2024-05-24 08:30 | DI.US_ITS ---
APPROVED REPORT EXAM: Comprehensive 2D, Doppler, and color-flow Echocardiogram Patient Location: Out-Patient Surgery Specialist: Davis Dang RDCS (AE) Indications: Edema Other Information Study Quality: Good Conclusion Normal left ventricular wall thickness and chamber size. Ejection fraction is 60 to 65%. Wall motio n is normal Normal right ventricular size and function Both atria are normal in size There is no structural or hemodynamically significant valvular disease Wall motion Left Ventricle The left ventricle is normal size. Left ventricular systolic function is normal. The left ventricular ejection fraction is within the normal range. There is normal left ventricular wall thickness. There is normal LV segmental wall motion. There is no ventricular septal defect visualized. LVEF is 60-65% . Right Ventricle The right ventricle is normal size. The right ventricular systolic function is normal. Atria The left atrium size is normal. The right atrium size is normal. The interatrial septum is intact wit h no evidence for an atrial septal defect. Aortic Valve The aortic valve is normal in structure. Aortic valve is trileaflet. There is no aortic valvular sten osis. No aortic regurgitation is present. Mitral Valve The mitral valve is normal in structure. No evidence of mitral valve stenosis. Trace mitral regurgita tion. Tricuspid Valve The tricuspid valve is normal in structure. There is no tricuspid valve stenosis. Trace tricuspid reg urgitation. Pulmonic Valve The pulmonary valve is normal in structure. There is no pulmonic valvular stenosis. There is no pulmo cyrus valvular regurgitation. Great Vessels The aortic root is normal in size. Ascending aorta is not well visualized. Aortic arch is normal in c aliber. IVC is normal in size and collapses >50% with inspiration. Pericardium There is no pericardial effusion. 2D Dimensions IVSD d PLAX 0.44 cm F: 0.6-1.0 Ao Root d 3.03 cm F: 2.7 - 3.3 LVPW d PLAX 0.39 cm F: 0.6 - 1.0 LVID d PLAX 5.30 cm F: 3.8 - 5.2 LVDs 3.38 cm F: 2.2 - 3.5 LV EF Teichholz 65.3 % FS 36.10 % LV EDV (Teich) 135.1 mL LV ESV (Teich) 46.9 mL Stroke Vol Index (Teich) 47.41 M-Mode TAPSE 2.33 cm (M/F) >1.7 Auto EF LV EDV A4C 93.4 mL LV EDV A2C 136.2 mL LV EDV BP 115.4 mL LV ESV A4C 37.4 mL LV ESV A2C 50.0 mL LV ESV BP 43.9 mL LVEF(%) A4C 59.9 % LVEF(%) A2C 63.3 % LVEF(%) BP 61.9 % LV SV A4C 56.0 ml LV SV A2C 86.1 ml LV SV BP 71.5 ml LV CO A4C 4.0 L/min LV CO A2C 6.1 L/min LV CO BP 5.1 L/min HR A4C 71.83 BPM HR A2C 70.87 BPM LV EDV Index (BP) LA Volume LA Length A4C 3.7 cm LA Length A2C 3.9 cm LA Area A4C s 8.43 cm2 LA Area A2C s 10.19 cm2 LA Vol A4C A-L 16.23 mL LA Vol A2C A-L 22.59 mL LA Vol Biplane A-L 19.6 mL LA Vol/BSA A4C A-L LA Vol/BSA A2C A-L LA Vol/BSA BP A-L 10.5 mL/m2 LA Vol A4C MOD 15.4 mL LA Vol A2C MOD 22.3 mL LA Vol BP MOD 18.8 mL RA Volume RA Area A4C 7.8 cm2 RA ESV A4C (A-L) 14.7mL RA Vol/BSA A4C A-L RA Length A4C 3.5 cm RA ESV A4C (MOD) 14.2mL LV Diastology MV E' medial 0.129 (>0.07 m/s) MV E Vmax 0.98 (0.4-1.3 m/s) MV E/E' MED 7.66 (<14) MV A Vmax 0.65 (0.4-1.3 m/s) MV E' lateral 0.185 (>0.1 m/s) E/A Ratio 1.5 MV E/E' LAT 5.33 (<14) MV E' Average 0.157 m/s MV E/E'(average) 6.29 Aortic Valve AoV Vmax 1.15 m/s LVOT Vmax 0.84 m/s AoV Peak Grad 5.3 mmHg LVOT Peak Grad 2.8 mmHg AoV Area (Vmax) 2.58 cm2 LVOT VTI 0.195 m AoV VTI 0.280 m LVOT Mean Grad 1.6 mmHg AoV Mean Sid. 0.83 m/s LVOT SV 69.78 mL AoV Mean Grad 3.1 mmHg LVOT Diam s 2.10 cm AoV Area (VTI) 2.49 cm2 AV Regurg Peak Gr. 5.33 mmHg Velocity Ratio 0.73 Mitral Valve MV DT 174 (160-240 msec) Tricuspid Valve TV S' 0.15 m/s
== END 2024-05-24 01:05 ==
LOC: DI 00:45
PROVIDERS: PCP Family Medicine; Visit Provider Internal Medicine Cardiovascular Disease
DX: R60.0 Localized edema (principal); R10.2 Pelvic and perineal pain; K59.00 Constipation, unspecified; Z90.49 Acquired absence of other specified parts of digestive tract
CPT/HCPCS: 76705; 76856; 93306

== ENCOUNTER 2024-07-01 07:50 | Outpatient (RCR) | payer OTHER, SELFPAY ==
--- NOTE | 2024-07-07 09:04 | W.HOLTRPT ---
Date of service: 07/07/24 Time of Service: 09:04 Holter Monitor Report Referring Provider:: Zulma Costa Indications:: Palpitations Holter Monitor Note: This is a 48-hour Holter monitor. Rhythm throughout was sinus with an average heart rate of 75. Minimum was 45, maximum 152. A total of 16 premature ventricular contractions occurred. There were 87 premature atrial contractions. There was no atrial fibrillation, no high-grade AV block, no pauses greater than 3 seconds. Symptoms were reported which correlated to sinus rhythm in the 70s and 80s
== END 2024-07-16 23:59 | disposition home or self-care (01) ==
LOC: CARDOPNVT 07:50
PROVIDERS: PCP Family Medicine; Visit Provider Internal Medicine Cardiovascular Disease
DX: R00.2 Palpitations (principal); I49.3 Ventricular premature depolarization; I49.1 Atrial premature depolarization
CPT/HCPCS: 93225; 93226

== ENCOUNTER 2024-08-07 02:15 | Outpatient (CLI) | payer OTHER, SELFPAY ==
[2024-08-09 10:09] LABS: TB Interpretation Negative (Negative); TB1 Ag minus Nil 0.01 IU/mL; TB2 Ag minus Nil 0.01 IU/mL
== END 2024-08-07 02:16 | disposition home or self-care (01) ==
LOC: LBN 02:16 → LBO 02:33
PROVIDERS: PCP Family Medicine; Visit Provider Family Medicine
DX: Z11.1 Encounter for screening for respiratory tuberculosis (principal)
CPT/HCPCS: 86480